=== PATIENT | female | born 1945 | race Caucasian/White ===

== ENCOUNTER 2017-10-15 14:20 | Emergency (ER) | payer OTHER ==
[~2017-10-15] VITALS: Ht 154.9 cm; Wt 114.3 kg
[2017-10-15 14:45] LABS: BASOPHILS ABSOLUTE AUTO 0.09 K/mm3 (0.00-0.23); BASOPHILS PERCENT AUTO 1 % (0-2); EOSINOPHILS ABSOLUTE AUTO 1.34 K/mm3 (0.00-0.68); EOSINOPHILS PERCENT AUTO 15 % (0-6); Hematocrit 39.8 % (33.0-51.0); Hemoglobin 12.8 g/dL (11.5-16.0); IMMATURE GRAN ABSOLUTE AUTO 0.03 K/mm3 (0.00-0.10); IMMATURE GRAN PERCENT AUTO 0 % (0-1); LYMPHOCYTES ABSOLUTE AUTO 1.38 K/mm3 (0.84-5.20); LYMPHOCYTES PERCENT AUTO 15 % (21-46); MONOCYTES PERCENT AUTO 7 % (4-13); Mean Corpuscular HGB 28.4 pg (26.0-34.0); Mean Corpuscular HGB Conc 32.2 g/dL (31.5-36.5); Mean Corpuscular Volume 88 fL (80-100); Mean Platelet Volume 9.6 fL (9.1-12.4); NEUTROPHILS ABSOLUTE AUTO 5.57 K/mm3 (1.96-9.15); NEUTROPHILS PERCENT AUTO 62 % (41-73); Platelet Count 275 K/mm3 (150-400); RDW Standard Deviation 45.3 fL (35.1-46.3); White Blood Cell Count 9.01 K/mm3 (4.00-11.30)
[2017-10-15 15:10] LABS: Alanine Aminotransfer (ALT/SGP 16 U/L (12-78); Albumin, Blood 3.3 g/dL (3.4-5.0); Albumin/Globulin Ratio 0.9 (0.8-1.8); Alk Phos 128 U/L (50-136); Anion Gap 8 mmol/L (6-16); Aspartate Aminotrans (AST/SGOT 15 U/L (12-37); Bilirubin, Total 0.2 mg/dL (0.1-1.0); Blood Urea Nitrogen 9 mg/dL (8-24); Bun/Creatinine Ratio 16.7 (12.0-20.0); CO2, Blood 26 mmol/L (21-32); Calcium, Blood 8.6 mg/dL (8.5-10.1); Chloride, Blood 106 mmol/L (98-108); Creatinine, Blood 0.54 mg/dL (0.40-1.00); Globulin, Blood 3.8 g/dL (2.2-4.0); Glomerular Filtration Rate >60 (60-); Glucose, Blood 100 mg/dL (70-99); Potassium, Blood 4.4 mmol/L (3.5-5.5); Sodium, Blood 140 mmol/L (136-145); Total Protein, Blood 7.1 g/dL (6.4-8.2); Troponin I <0.015 ng/mL (0.000-0.040)
[2017-10-15] MEDS ORDERED: SERT25 (15:22)
[2017-10-15] MEDS ORDERED: BUDE6HFA (15:22)
[2017-10-15 16:20] LABS: PCO2 Arterial 38.3 mmHg (35-45); PO2 Arterial 62.6 mmHg (80-100); pH Blood Arterial 7.45 (7.35-7.45)
[2017-10-15] MEDS ORDERED: CEFP200 PO (16:42)
== END 2017-10-15 16:54 | disposition home or self-care (01) ==
LOC: ER 14:20
PROVIDERS: Physician Assistant
DX: J44.1 Chronic obstructive pulmonary disease with (acute) exacerbation (principal); J18.9 Pneumonia, unspecified organism; F41.9 Anxiety disorder, unspecified; K21.9 Gastro-esophageal reflux disease without esophagitis; Z88.2 Allergy status to sulfonamides; Z90.710 Acquired absence of both cervix and uterus; Z90.49 Acquired absence of other specified parts of digestive tract; Z87.891 Personal history of nicotine dependence
CPT/HCPCS: 36415; 36600; 71046; 80053; 82803; 84484; 85025; 93005; 93010; 99284

== ENCOUNTER 2020-11-22 17:42 | Inpatient (IN) | payer OTHER ==
[~2020-11-22] VITALS: Ht 152.4 cm; Wt 110.2 kg
[~2020-11-22 17:42] MED LIST: CEFP200 PO
[2020-11-22 18:30] LABS: BASOPHILS ABSOLUTE AUTO 0.05 K/mm3 (0.00-0.23); BASOPHILS PERCENT AUTO 1 % (0-2); EOSINOPHILS ABSOLUTE AUTO 0.15 K/mm3 (0.00-0.68); EOSINOPHILS PERCENT AUTO 2 % (0-6); Hematocrit 43.9 % (33.0-51.0); Hemoglobin 13.7 g/dL (11.5-16.0); IMMATURE GRAN ABSOLUTE AUTO 0.03 K/mm3 (0.00-0.10); IMMATURE GRAN PERCENT AUTO 0 % (0-1); LYMPHOCYTES ABSOLUTE AUTO 1.14 K/mm3 (0.84-5.20); LYMPHOCYTES PERCENT AUTO 12 % (21-46); MONOCYTES PERCENT AUTO 8 % (4-13); Mean Corpuscular HGB 28.4 pg (26.0-34.0); Mean Corpuscular HGB Conc 31.2 g/dL (31.5-36.5); Mean Corpuscular Volume 91 fL (80-100); Mean Platelet Volume 10.4 fL (9.1-12.4); NEUTROPHILS ABSOLUTE AUTO 7.24 K/mm3 (1.96-9.15); NEUTROPHILS PERCENT AUTO 78 % (41-73); Platelet Count 309 K/mm3 (150-400); RDW Coefficient Variation 14.4 % (11.7-14.2); RDW Standard Deviation 47.5 fL (35.1-46.3); Red Blood Cell Count 4.83 M/mm3 (3.80-5.20); White Blood Cell Count 9.31 K/mm3 (4.00-11.30)
[2020-11-22 18:55] LABS: Alanine Aminotransfer (ALT/SGP 50 U/L (12-78); Albumin, Blood 3.7 g/dL (3.4-5.0); Alk Phos 90 U/L (50-136); Anion Gap 4 mmol/L (6-16); Aspartate Aminotrans (AST/SGOT 27 U/L (12-37); Bilirubin, Total 0.5 mg/dL (0.1-1.0); Blood Urea Nitrogen 14 mg/dL (8-24); Bun/Creatinine Ratio 23.6 (12.0-20.0); CO2, Blood 30 mmol/L (21-32); Calcium, Blood 9.2 mg/dL (8.5-10.1); Chloride, Blood 105 mmol/L (98-108); Creatinine, Blood 0.59 mg/dL (0.40-1.00); Globulin, Blood 3.7 g/dL (2.2-4.0); Glomerular Filtration Rate >60 (60-); Glucose, Blood 122 mg/dL (70-99); Potassium, Blood 4.1 mmol/L (3.5-5.5); Sodium, Blood 139 mmol/L (136-145); Total Protein, Blood 7.4 g/dL (6.4-8.2); Troponin I <0.015 ng/mL (0.000-0.040)
[2020-11-22] MEDS ORDERED: ELIQUIS5 MG PO (21:26)
[2020-11-22] MEDS ORDERED: Valerian Root500 MG PO (21:34)
[2020-11-23 06:29] LABS: Anion Gap 5 mmol/L (6-16); Blood Urea Nitrogen 14 mg/dL (8-24); Bun/Creatinine Ratio 25.4 (12.0-20.0); CO2, Blood 31 mmol/L (21-32); Chloride, Blood 105 mmol/L (98-108); Creatinine, Blood 0.55 mg/dL (0.40-1.00); Glomerular Filtration Rate >60 (60-); Glucose, Blood 135 mg/dL (70-99); Potassium, Blood 4.2 mmol/L (3.5-5.5); Sodium, Blood 141 mmol/L (136-145)
--- NOTE | 2020-11-23 17:42 | NUR ---
SHIFT SUMMARY PATIENT TO THE FLOOR EARLY AFTERNOON. PATIENT ALERT AND ORIENTED, INDEPENDENT IN THE ROOM. PATIENT COOPERATIVE WITH CARE, COOPERATING WITH ADMISSION. PATIENT ARRIVED TO THE FLOOR IN A RECLINER, STATES SHE SLEEPS IN THE RECLINER. PATIENT DENIES SOB AT REST. SOB OCCURS WITH ACTIVITY, RETURNING TO NORMAL QUICKLY AT REST. PATIENT DENIES PAIN. PATIENT'S DAUGHTER IN THE ROOM THIS AFTERNOON VISITING. PATIENT CURRENTLY SITTING UP, EATING DINNER, WATCHING TELEVISION.
[2020-11-24 04:22] LABS: Albumin, Blood 3.1 g/dL (3.4-5.0); Anion Gap 5 mmol/L (6-16); Blood Urea Nitrogen 20 mg/dL (8-24); Bun/Creatinine Ratio 29.5 (12.0-20.0); CO2, Blood 34 mmol/L (21-32); Calcium, Blood 8.9 mg/dL (8.5-10.1); Chloride, Blood 102 mmol/L (98-108); Creatinine, Blood 0.68 mg/dL (0.40-1.00); Glomerular Filtration Rate >60 (60-); Glucose, Blood 106 mg/dL (70-99); Magnesium, Blood 1.8 mg/dL (1.6-2.4); Phosphorus, Blood 4.1 mg/dL (2.5-4.9); Potassium, Blood 3.6 mmol/L (3.5-5.5); Sodium, Blood 141 mmol/L (136-145)
--- NOTE | 2020-11-24 04:36 | NUR ---
SHIFT SUMMARY ASSUMED CARE OF PT AT 1900. PT IS A/OX4. HEART SOUNDS IRREGULAR, PT HAS BEEN IN AFIB T/O THE NIGHT. PT HEART TOUCHES THAT 150S DURING ACTIVITY. LUNG SOUNDS ARE COURSE T/O. PT USED BSC DURING THE NIGHT. PT IS A 1P SBA. URINE IS CLEAR AND YELLOW. NO COMPLAINT T/O THE NIGHT. CALL LIGHT IN REACH, BED IN LOWEST POSTION.
--- NOTE | 2020-11-24 18:01 | NUR ---
PT CONTINUES TO DIURESS WITH LASIX 40MG IV BID, PT'S HEART RATE ELEVATED THIS AM, CARDIZEM DOSE CHANGED TO 180 MG FROM 120MG. PT'S HEART RATE HAS BEEN IN THE 80'S THIS AFTERNOON. NO C/O OF PAIN OR DISCOMFORT. PT SAYS SHE IS FEELING BETTER AND ACTUALLY FEELS HUNGRY THIS EVENING. NO ACUTE CHANGES NOTED THIS SHIFT, WILL CONTINUE TO MONITOR AND REPORT TO ONCOMING RN.
--- NOTE | 2020-11-25 05:28 | NUR ---
SHIFT SUMMARY NO ACUTE CHANGES THIS SHIFT. AXO. IN AFIB RANGING FROM 80'S T0 130'S. PRN CARDIZEM PO BEING GIVEN Q6 ORDERED DUE TO MEDICATION WEARTING OFF AND HR >110. PT ASUMPTOMATIC TO THIS. PT CONTINUES ON 2LNC. PT STATES IN GENERAL, FEELING "REALLY GOOD", "BETTER THAN I HAVE FELT IN THE LAST FEW MONTHS". PT DIURESING WELL. UP TO BSC MULTIPLE TIMES THIS SHIFT. OTHERWISE, PT RESTING IN ROOM, WILL CONTINUE TO MONITOR UNTUIL SHIFT CHANGE.
[2020-11-25 09:04] LABS: Albumin, Blood 3.5 g/dL (3.4-5.0); Anion Gap 4 mmol/L (6-16); Blood Urea Nitrogen 18 mg/dL (8-24); Bun/Creatinine Ratio 29.4 (12.0-20.0); CO2, Blood 36 mmol/L (21-32); Calcium, Blood 9.3 mg/dL (8.5-10.1); Chloride, Blood 99 mmol/L (98-108); Creatinine, Blood 0.61 mg/dL (0.40-1.00); Glomerular Filtration Rate >60 (60-); Glucose, Blood 100 mg/dL (70-99); Phosphorus, Blood 3.4 mg/dL (2.5-4.9); Potassium, Blood 3.7 mmol/L (3.5-5.5); Sodium, Blood 139 mmol/L (136-145)
--- NOTE | 2020-11-25 18:01 | NUR ---
SHIFT SUMMARY PT ALERT AND ORIENTED X 4. PT WORKED WITH PT/OT DURING SHIFT. POSSIBLE HOME HEALTH REFERRALS. HR STABLE. BP STABLE. OXYGEN SATURATION MAINTAINED ABOVE 92% ON 1 L OF OXYGEN VIA NC. SBA TO BATHROOM. NO CP OR PRESSURE REPORTED. WILL CONTINUE TO MONITOR UNTIL REPORT GIVEN TO NIGHTSHIFT RN.
[2020-11-26 05:09] LABS: Anion Gap 5 mmol/L (6-16); Blood Urea Nitrogen 19 mg/dL (8-24); CO2, Blood 34 mmol/L (21-32); Calcium, Blood 9.1 mg/dL (8.5-10.1); Chloride, Blood 101 mmol/L (98-108); Creatinine, Blood 0.51 mg/dL (0.40-1.00); Glomerular Filtration Rate >60 (60-); Glucose, Blood 112 mg/dL (70-99); Phosphorus, Blood 3.5 mg/dL (2.5-4.9); Potassium, Blood 3.6 mmol/L (3.5-5.5); Sodium, Blood 140 mmol/L (136-145)
--- NOTE | 2020-11-26 05:46 | NUR ---
SHIFT SUMMARY NO ACUTE CHANGES THIS SHIFT. AXO. VSS. ON 1-2LNC. HR MUCH BETTER CONTROLLED THIS SHIFT VS LAST NOC. HR 100'S FOR THE MAJORITY OF SHIFT AT REST, WHILE UP TO BATHROOM, PT DOES RISE INTO 130'S BUT QUICKLY TRENDS BACK DOWN. PT HAS DENIED CP/PRESSURE THIS SHIFT. PT STILL DIURESING WELL. PT EXCITED ABOUT POSSIBILITY OF DC'ING TODAY. WILL CONTINUE TO MONITOR UNTIL SHIFT CHANGE.
[2020-11-26] MEDS ORDERED: DILT120 PO (11:52)
[2020-11-26] MEDS ORDERED: PRED20 PO (11:53)
== END 2020-11-26 13:14 | disposition home or self-care (01) | DRG 291 ==
LOC: ER 17:42 → ERHOLD 21:46 → PCU 21:46
PROVIDERS: Emergency Medicine; Internal Medicine; ADMIT Internal Medicine
PROC: 8E0ZXY6 Isolation (ICD-10-PCS; principal; 2020-11-22)
DX: I50.21 Acute systolic (congestive) heart failure (principal); J96.21 Acute and chronic respiratory failure with hypoxia; J96.01 Acute respiratory failure with hypoxia; Z68.43 Body mass index [BMI] 50.0-59.9, adult; I48.91 Unspecified atrial fibrillation; D86.0 Sarcoidosis of lung; I27.20 Pulmonary hypertension, unspecified; E66.01 Morbid (severe) obesity due to excess calories; J44.9 Chronic obstructive pulmonary disease, unspecified; F32.9 Major depressive disorder, single episode, unspecified; K21.9 Gastro-esophageal reflux disease without esophagitis; F41.9 Anxiety disorder, unspecified; Z99.81 Dependence on supplemental oxygen; Z90.710 Acquired absence of both cervix and uterus; Z90.49 Acquired absence of other specified parts of digestive tract; Z98.890 Other specified postprocedural states; Z88.2 Allergy status to sulfonamides; Z87.891 Personal history of nicotine dependence; Z85.42 Personal history of malignant neoplasm of other parts of uterus; Z79.899 Other long term (current) drug therapy
CPT/HCPCS: 36415; 71045; 80048; 80053; 80069; 83735; 83880; 84443; 84484; 85025; 87040; 93005; 93010; 94640; 94760; 94761; 94762; 96365; 96366; 96375; 96376; 97116; 97162; 97165; 97530; 97535; 99285-25; A9270; J1160; J1940; J7030; J7050; J7512

== ENCOUNTER 2020-12-05 09:48 | Observation (INO) | payer OTHER ==
[~2020-12-05] VITALS: Ht 152.4 cm; Wt 114.0 kg
[~2020-12-05 09:48] MED LIST changes: +DILT120 PO; +ELIQUIS5 MG PO; +PRED20 PO; +Valerian Root500 MG PO
[2020-12-05 10:14] LABS: BASOPHILS ABSOLUTE AUTO 0.04 K/mm3 (0.00-0.23); BASOPHILS PERCENT AUTO 0 % (0-2); EOSINOPHILS ABSOLUTE AUTO 0.16 K/mm3 (0.00-0.68); EOSINOPHILS PERCENT AUTO 1 % (0-6); Hematocrit 42.5 % (33.0-51.0); Hemoglobin 13.5 g/dL (11.5-16.0); IMMATURE GRAN ABSOLUTE AUTO 0.21 K/mm3 (0.00-0.10); IMMATURE GRAN PERCENT AUTO 1 % (0-1); LYMPHOCYTES ABSOLUTE AUTO 2.61 K/mm3 (0.84-5.20); LYMPHOCYTES PERCENT AUTO 17 % (21-46); MONOCYTES ABSOLUTE AUTO 1.21 K/mm3 (0.16-1.47); MONOCYTES PERCENT AUTO 8 % (4-13); Mean Corpuscular HGB 28.1 pg (26.0-34.0); Mean Corpuscular HGB Conc 31.8 g/dL (31.5-36.5); Mean Corpuscular Volume 88 fL (80-100); Mean Platelet Volume 9.8 fL (9.1-12.4); NEUTROPHILS PERCENT AUTO 73 % (41-73); Platelet Count 264 K/mm3 (150-400); RDW Coefficient Variation 14.6 % (11.7-14.2); RDW Standard Deviation 47.2 fL (35.1-46.3); Red Blood Cell Count 4.81 M/mm3 (3.80-5.20); White Blood Cell Count 15.63 K/mm3 (4.00-11.30)
[2020-12-05 10:32] LABS: Alanine Aminotransfer (ALT/SGP 24 U/L (12-78); Albumin, Blood 3.2 g/dL (3.4-5.0); Albumin/Globulin Ratio 1.1 (0.8-1.8); Alk Phos 67 U/L (50-136); Anion Gap 7 mmol/L (6-16); Aspartate Aminotrans (AST/SGOT 6 U/L (12-37); Bilirubin, Total 0.3 mg/dL (0.1-1.0); Blood Urea Nitrogen 29 mg/dL (8-24); Bun/Creatinine Ratio 49.1 (12.0-20.0); CO2, Blood 27 mmol/L (21-32); Calcium, Blood 8.7 mg/dL (8.5-10.1); Chloride, Blood 102 mmol/L (98-108); Creatinine, Blood 0.59 mg/dL (0.40-1.00); Glomerular Filtration Rate >60 (60-); Glucose, Blood 96 mg/dL (70-99); Sodium, Blood 136 mmol/L (136-145); Total Protein, Blood 6.2 g/dL (6.4-8.2); Troponin I <0.015 ng/mL (0.000-0.040)
--- NOTE | 2020-12-05 14:37 | NUR ---
pt arrived to pcu 5 via gurney from ED. pt is a/ox3, pleasant and cooperative with care, able to stand and transfer herself to bed, lungs are clear t/o, resp even and unlabored, states she feels ok now, is on home 02 at 2 liters, no cough noted, hrirr, tele in place running afib with rvr in the 130's, trace edema noted to b/l le, ppp+1, cap refill <3sec, v.s. stable, afebrile, iv site is clear and patent, btx4, abd flat soft nontender, voids without diff, skin c/w/d, maew, nicol, oriented to room layout and call system, call light in reach.
--- NOTE | 2020-12-05 17:55 | NUR ---
PT DOING OK, HEART RATE AROUND 110 PER TELE, DENIES ANY SYMPTOMS AT THIS TIME. CALL LIGHT IN REACH.
--- NOTE | 2020-12-05 19:20 | NUR ---
PT DENIES ANY COMPLAINTS OF PAIN, CHEST PAIN, HEADACHE, NAUSEA, NUMBNESS OR TINGLING, OR SOB. PT ENCOURAGED ABOUT HER HEART RATE, CURRENTLY HR IN LOW 100'S. PT IS MORBIDLY OBESE. PT DENIES ANY URINARY COMPLICATIONS, AND REPORTS SHE HAD A BM TODAY. PT HAS PIV TO R/L HAND - BOTH FLUSHED WNL. CALL LIGHT WITHIN REACH. BED IN LOW POSITION.
[2020-12-06 02:11] LABS: BASOPHILS ABSOLUTE AUTO 0.04 K/mm3 (0.00-0.23); BASOPHILS PERCENT AUTO 0 % (0-2); EOSINOPHILS ABSOLUTE AUTO 0.12 K/mm3 (0.00-0.68); EOSINOPHILS PERCENT AUTO 1 % (0-6); Hemoglobin 12.9 g/dL (11.5-16.0); IMMATURE GRAN ABSOLUTE AUTO 0.09 K/mm3 (0.00-0.10); IMMATURE GRAN PERCENT AUTO 1 % (0-1); LYMPHOCYTES ABSOLUTE AUTO 1.98 K/mm3 (0.84-5.20); LYMPHOCYTES PERCENT AUTO 15 % (21-46); MONOCYTES ABSOLUTE AUTO 0.99 K/mm3 (0.16-1.47); MONOCYTES PERCENT AUTO 8 % (4-13); Mean Corpuscular HGB 28.4 pg (26.0-34.0); Mean Corpuscular HGB Conc 31.5 g/dL (31.5-36.5); Mean Corpuscular Volume 90 fL (80-100); Mean Platelet Volume 9.8 fL (9.1-12.4); NEUTROPHILS ABSOLUTE AUTO 9.96 K/mm3 (1.96-9.15); NEUTROPHILS PERCENT AUTO 76 % (41-73); Platelet Count 236 K/mm3 (150-400); RDW Coefficient Variation 14.7 % (11.7-14.2); RDW Standard Deviation 48.8 fL (35.1-46.3); Red Blood Cell Count 4.54 M/mm3 (3.80-5.20); White Blood Cell Count 13.18 K/mm3 (4.00-11.30)
[2020-12-06 02:33] LABS: Anion Gap 3 mmol/L (6-16); Blood Urea Nitrogen 32 mg/dL (8-24); Bun/Creatinine Ratio 44.3 (12.0-20.0); CO2, Blood 32 mmol/L (21-32); Calcium, Blood 8.8 mg/dL (8.5-10.1); Chloride, Blood 105 mmol/L (98-108); Creatinine, Blood 0.72 mg/dL (0.40-1.00); Glomerular Filtration Rate >60 (60-); Glucose, Blood 91 mg/dL (70-99); Magnesium, Blood 2.1 mg/dL (1.6-2.4); Potassium, Blood 4.3 mmol/L (3.5-5.5); Sodium, Blood 140 mmol/L (136-145); Troponin I <0.015 ng/mL (0.000-0.040)
--- NOTE | 2020-12-06 06:11 | NUR ---
SHIFT SUMMARY - NO ACUTE CHANGES THROUGHOUT THE NIGHT. HEART RATE RANGED FROM UPPER 70'S TO LOW 100'S - PT DENIED ANY CHEST DISCOMFORT OR PAIN. PT SLEPT FOR APPX 6 HOURS TONIGHT. PT IS ANTICIPATING GOING HOME TODAY. CALL LIGHT WITHIN REACH. BED IN LOW POSITION. FLUIDS AT BEDSIDE.
--- NOTE | 2020-12-06 08:22 | NUR ---
pt laying in bed awake a/ox3, pleasant and cooperative with care, follows commands well, denies pain, tightness or sob, reports she slept well, lungs are clear t/o, a bit dim in bases, on her chronic 2 liters via n/c, no cough noted, hrr, tele in place running afib in the 110 to 130's, no edema noted, ppp faint, cap refill <3sec, vs stable, afebrile, iv sites are clear and patent, btx4, abd flat soft nontender, voids without diff, skin c/w/d, maew, ambulates indep, nicol, call light in reach.
[2020-12-06] MEDS ORDERED: XARELTO20 MG PO (15:50)
== END 2020-12-06 16:32 | disposition home or self-care (01) ==
LOC: ER 09:48 → PCU 09:49
PROVIDERS: Emergency Medicine; ADMIT Internal Medicine
DX: I48.91 Unspecified atrial fibrillation (principal); D86.0 Sarcoidosis of lung; I11.0 Hypertensive heart disease with heart failure; I50.23 Acute on chronic systolic (congestive) heart failure; J44.9 Chronic obstructive pulmonary disease, unspecified; E66.01 Morbid (severe) obesity due to excess calories; F32.9 Major depressive disorder, single episode, unspecified; Z88.5 Allergy status to narcotic agent; Z88.2 Allergy status to sulfonamides; Z79.01 Long term (current) use of anticoagulants; Z79.899 Other long term (current) drug therapy
CPT/HCPCS: 36415; 71046; 80048; 80053; 83735; 83880; 84484; 85025; 93005; 93010; 94640; 94760; 96365; 96366; 96375; 99285-25; A9270; G0378

== ENCOUNTER 2020-12-15 10:52 | Observation (INO) | payer OTHER ==
[~2020-12-15] VITALS: Ht 152.4 cm; Wt 114.8 kg
[~2020-12-15 10:52] MED LIST changes: +XARELTO20 MG PO
[2020-12-15 11:28] LABS: BASOPHILS ABSOLUTE AUTO 0.04 K/mm3 (0.00-0.23); BASOPHILS PERCENT AUTO 0 % (0-2); EOSINOPHILS ABSOLUTE AUTO 0.12 K/mm3 (0.00-0.68); EOSINOPHILS PERCENT AUTO 1 % (0-6); Hematocrit 41.2 % (33.0-51.0); Hemoglobin 13.3 g/dL (11.5-16.0); IMMATURE GRAN ABSOLUTE AUTO 0.06 K/mm3 (0.00-0.10); IMMATURE GRAN PERCENT AUTO 1 % (0-1); LYMPHOCYTES ABSOLUTE AUTO 2.06 K/mm3 (0.84-5.20); LYMPHOCYTES PERCENT AUTO 17 % (21-46); MONOCYTES PERCENT AUTO 6 % (4-13); Mean Corpuscular HGB 28.8 pg (26.0-34.0); Mean Corpuscular HGB Conc 32.3 g/dL (31.5-36.5); Mean Corpuscular Volume 89 fL (80-100); NEUTROPHILS ABSOLUTE AUTO 8.99 K/mm3 (1.96-9.15); NEUTROPHILS PERCENT AUTO 75 % (41-73); Platelet Count 239 K/mm3 (150-400); RDW Coefficient Variation 14.8 % (11.7-14.2); RDW Standard Deviation 48.4 fL (35.1-46.3); Red Blood Cell Count 4.62 M/mm3 (3.80-5.20); White Blood Cell Count 11.97 K/mm3 (4.00-11.30)
[2020-12-15 11:42] LABS: Alanine Aminotransfer (ALT/SGP 40 U/L (12-78); Albumin/Globulin Ratio 0.9 (0.8-1.8); Alk Phos 70 U/L (50-136); Anion Gap 5 mmol/L (6-16); Aspartate Aminotrans (AST/SGOT 22 U/L (12-37); Bilirubin, Total 0.4 mg/dL (0.1-1.0); Blood Urea Nitrogen 26 mg/dL (8-24); Bun/Creatinine Ratio 42.8 (12.0-20.0); CO2, Blood 27 mmol/L (21-32); Calcium, Blood 8.5 mg/dL (8.5-10.1); Chloride, Blood 107 mmol/L (98-108); Creatinine, Blood 0.61 mg/dL (0.40-1.00); Globulin, Blood 3.4 g/dL (2.2-4.0); Glomerular Filtration Rate >60 (60-); Glucose, Blood 97 mg/dL (70-99); Potassium, Blood 3.7 mmol/L (3.5-5.5); Sodium, Blood 139 mmol/L (136-145); Total Protein, Blood 6.4 g/dL (6.4-8.2); Troponin I <0.015 ng/mL (0.000-0.040)
[2020-12-15] MEDS ORDERED: POTCHL20ER PO (12:47)
[2020-12-15] MEDS ORDERED: SERT100 PO (12:47)
[2020-12-15] MEDS ORDERED: FURO40 PO (12:47)
[2020-12-15] MEDS ORDERED: SYMBICORT 160-4.6 GM INH (12:47)
[2020-12-15] MEDS ORDERED: PRESERVISION A1 EAC1 PO (12:47)
[2020-12-15] MEDS ORDERED: LISI5 PO (12:47)
[2020-12-15] MEDS ORDERED: Valerian Root500 MG PO (12:47)
[2020-12-15] MEDS ORDERED: TIOT18 INH (12:47)
[2020-12-15] MEDS ORDERED: ALBU90OI INH (12:47)
[2020-12-15] MEDS ORDERED: ELIQUIS5 MG PO (12:48)
[2020-12-15] MEDS ORDERED: METO100 PO (12:48)
[2020-12-16 04:40] LABS: BASOPHILS ABSOLUTE AUTO 0.04 K/mm3 (0.00-0.23); BASOPHILS PERCENT AUTO 0 % (0-2); EOSINOPHILS ABSOLUTE AUTO 0.12 K/mm3 (0.00-0.68); EOSINOPHILS PERCENT AUTO 1 % (0-6); Hemoglobin 12.5 g/dL (11.5-16.0); IMMATURE GRAN ABSOLUTE AUTO 0.05 K/mm3 (0.00-0.10); IMMATURE GRAN PERCENT AUTO 1 % (0-1); LYMPHOCYTES ABSOLUTE AUTO 1.27 K/mm3 (0.84-5.20); LYMPHOCYTES PERCENT AUTO 12 % (21-46); MONOCYTES ABSOLUTE AUTO 0.64 K/mm3 (0.16-1.47); MONOCYTES PERCENT AUTO 6 % (4-13); Mean Corpuscular HGB 28.7 pg (26.0-34.0); Mean Corpuscular HGB Conc 32.1 g/dL (31.5-36.5); Mean Corpuscular Volume 89 fL (80-100); Mean Platelet Volume 10.1 fL (9.1-12.4); NEUTROPHILS ABSOLUTE AUTO 8.49 K/mm3 (1.96-9.15); NEUTROPHILS PERCENT AUTO 80 % (41-73); Platelet Count 212 K/mm3 (150-400); RDW Coefficient Variation 14.7 % (11.7-14.2); RDW Standard Deviation 47.9 fL (35.1-46.3); Red Blood Cell Count 4.36 M/mm3 (3.80-5.20); White Blood Cell Count 10.61 K/mm3 (4.00-11.30)
[2020-12-16 04:57] LABS: Anion Gap 5 mmol/L (6-16); Blood Urea Nitrogen 26 mg/dL (8-24); Bun/Creatinine Ratio 35.1 (12.0-20.0); CO2, Blood 30 mmol/L (21-32); Calcium, Blood 8.4 mg/dL (8.5-10.1); Chloride, Blood 104 mmol/L (98-108); Creatinine, Blood 0.74 mg/dL (0.40-1.00); Glomerular Filtration Rate >60 (60-); Glucose, Blood 92 mg/dL (70-99); Potassium, Blood 4.1 mmol/L (3.5-5.5); Sodium, Blood 139 mmol/L (136-145)
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
--- NOTE | 2020-12-16 17:53 | NUR ---
PATIENT A/OX4, UP INDEPENDENT IN ROOM. A-FIB ON TELE, UP TO THE 130'S THIS EVENING, PO METOPROLOL AND PRN IV METOPROLOL GIVEN TO TREAT. SECOND PART OF STRESS TEST TOMORROW. PATIENT DENIES ANY CP THIS SHIFT. LUNGS CLEAR/DIMINISHED, 2LO2 NOW AND AT BASELINE. CONTINENT OF URINE/STOOL. SKIN INTACT. TOLERATING CARDIAC DIET. PLEASANT AND COOPERATIVE WITH CARE.
--- NOTE | 2020-12-17 03:38 | NUR ---
PT continues full code on tele monitoring with afib rate up to 145 with activity. She had recieves 5 mg iv lopressor just prior to my shift with continued AFIB rate 120s. Secend dose of IV lopressor given with some decreased rate to 110s. Recieved call from tele monitor December on 11 beat run of vtach. PT asymptomatic denies chest pain or other acute distress. She had 1st part of cardiac stress test yesterday second part scheduled for today. [facility] PT says she has been complainting of heart palpations for years. Oxygen dependent 2 l nc at all times. Recent afib dx & CHF. Indep in room PT tolerating diet. Heart sounds very distant. Lungs diminished bilat.
--- NOTE | 2020-12-17 05:17 | NUR ---
DR Eckert updated on beat run of [facility]. Lab orders CBC CMP mag ordered. Has cardiac stress test set for today. Denies chest pain or acute distress.
[2020-12-17 05:40] LABS: BASOPHILS ABSOLUTE AUTO 0.02 K/mm3 (0.00-0.23); BASOPHILS PERCENT AUTO 0 % (0-2); EOSINOPHILS ABSOLUTE AUTO 0.14 K/mm3 (0.00-0.68); EOSINOPHILS PERCENT AUTO 2 % (0-6); Hematocrit 38.8 % (33.0-51.0); Hemoglobin 12.3 g/dL (11.5-16.0); IMMATURE GRAN ABSOLUTE AUTO 0.04 K/mm3 (0.00-0.10); IMMATURE GRAN PERCENT AUTO 1 % (0-1); LYMPHOCYTES ABSOLUTE AUTO 1.23 K/mm3 (0.84-5.20); LYMPHOCYTES PERCENT AUTO 14 % (21-46); MONOCYTES ABSOLUTE AUTO 0.58 K/mm3 (0.16-1.47); MONOCYTES PERCENT AUTO 7 % (4-13); Mean Corpuscular HGB 28.1 pg (26.0-34.0); Mean Corpuscular HGB Conc 31.7 g/dL (31.5-36.5); Mean Corpuscular Volume 89 fL (80-100); NEUTROPHILS ABSOLUTE AUTO 6.62 K/mm3 (1.96-9.15); NEUTROPHILS PERCENT AUTO 77 % (41-73); Platelet Count 214 K/mm3 (150-400); RDW Coefficient Variation 14.6 % (11.7-14.2); RDW Standard Deviation 47.1 fL (35.1-46.3); Red Blood Cell Count 4.38 M/mm3 (3.80-5.20); White Blood Cell Count 8.63 K/mm3 (4.00-11.30)
--- NOTE | 2020-12-17 06:00 | NUR ---
PT afib rate 93 this AM. Labs drawn per MD order await result.
[2020-12-17 06:19] LABS: Alanine Aminotransfer (ALT/SGP 28 U/L (12-78); Albumin, Blood 2.8 g/dL (3.4-5.0); Alk Phos 65 U/L (50-136); Anion Gap 4 mmol/L (6-16); Aspartate Aminotrans (AST/SGOT 7 U/L (12-37); Bilirubin, Total 0.8 mg/dL (0.1-1.0); Blood Urea Nitrogen 21 mg/dL (8-24); Bun/Creatinine Ratio 30.4 (12.0-20.0); CO2, Blood 32 mmol/L (21-32); Calcium, Blood 8.5 mg/dL (8.5-10.1); Chloride, Blood 104 mmol/L (98-108); Creatinine, Blood 0.69 mg/dL (0.40-1.00); Globulin, Blood 2.9 g/dL (2.2-4.0); Glomerular Filtration Rate >60 (60-); Glucose, Blood 90 mg/dL (70-99); Magnesium, Blood 2.1 mg/dL (1.6-2.4); Potassium, Blood 3.7 mmol/L (3.5-5.5); Sodium, Blood 140 mmol/L (136-145); Total Protein, Blood 5.7 g/dL (6.4-8.2)
[2020-12-17] MEDS ORDERED: LISI5 PO (18:26)
--- NOTE | 2020-12-17 18:32 | NUR ---
PATIENT IS ALERT AND ORIENTED AND COOPERATIVE WITH CARE. PATIENT COMPLETED HER STRESS TEST TODAY WHICH WAS NEGATIVE. THE PATIENT IS GOING TO DISCHARGE HOME AT 7. WILL CONTINUE TO MONITOR
== END 2020-12-17 18:44 | disposition home or self-care (01) ==
LOC: ER 10:52 → MEDS 13:11
PROVIDERS: Emergency Medicine; Internal Medicine; Nurse Practitioner Acute Care; ADMIT Internal Medicine
DX: R07.9 Chest pain, unspecified (principal); I48.91 Unspecified atrial fibrillation; I11.0 Hypertensive heart disease with heart failure; I50.22 Chronic systolic (congestive) heart failure; D86.9 Sarcoidosis, unspecified; J44.9 Chronic obstructive pulmonary disease, unspecified; E66.01 Morbid (severe) obesity due to excess calories; F32.9 Major depressive disorder, single episode, unspecified; Z79.01 Long term (current) use of anticoagulants; Z90.710 Acquired absence of both cervix and uterus; Z87.891 Personal history of nicotine dependence; Z68.42 Body mass index [BMI] 45.0-49.9, adult
CPT/HCPCS: 36415; 71045; 78452; 80048; 80053; 83735; 83880; 84484; 85025; 93005; 93010; 93017; 94640; 94760; 96374; 96375; 96376; 99285-25; A9270; A9500; G0378; J0706; J1885; J1940; J2785

== ENCOUNTER 2021-07-23 09:26 | Day surgery (SDC) | payer OTHER ==
[~2021-07-23] VITALS: Ht 152.4 cm; Wt 106.5 kg
[~2021-07-23 09:26] MED LIST changes: +ALBU90OI INH; +FURO40 PO; +LISI5 PO; +METO100 PO; +POTCHL20ER PO; +PRESERVISION A1 EAC1 PO; +SERT100 PO; +SYMBICORT 160-4.6 GM INH; +TIOT18 INH
--- NOTE | 2021-07-23 09:52 | NUR ---
07/23/21 0923 Luda Billingsley CALL LIGHT BREN VAUGHAN. EYE DROPS AT 0971 PLEDGETT AT 0994
== END 2021-07-23 11:30 | disposition home or self-care (01) ==
LOC: ORSCSDS 09:26
PROVIDERS: Ophthalmology
PROC: 08RJ3JZ Replacement of Right Lens with Synthetic Substitute, Percutaneous Approach (ICD-10-PCS; principal; 2021-07-23 10:30)
DX: H25.11 Age-related nuclear cataract, right eye (principal); I10 Essential (primary) hypertension; J44.9 Chronic obstructive pulmonary disease, unspecified; I48.91 Unspecified atrial fibrillation; Z79.01 Long term (current) use of anticoagulants; E66.01 Morbid (severe) obesity due to excess calories; Z68.42 Body mass index [BMI] 45.0-49.9, adult; Z79.899 Other long term (current) drug therapy
CPT/HCPCS: A9270; J2001; J2250; J3010; J3301; J7040; V2632

== ENCOUNTER 2021-08-13 09:08 | Day surgery (SDC) | payer OTHER ==
[~2021-08-13] VITALS: Ht 152.4 cm; Wt 108.1 kg
--- NOTE | 2021-08-13 09:45 | NUR ---
08/13/21 0945 MASON MALONEY TETRACAINE DROP INSTILLED AT 0936. PLEDGETT INSERTED AT 0937
--- NOTE | 2021-08-14 08:10 | NUR ---
08/14/21 0810 ARISTEO MORGAN LATE ENTRY: DR KHAN AT BEDSIDE VITALSIGNS DISCUSSED WITH PT. HR 118-124 DUE TO CHRONIC AFIB. RESP.36 REPORTED TO CLEARED TO DISCHARGE. PT WAS STABLE AND STATED SHE FELT GOOD AND READY TO GO HOME. WHEELED HER IN CHAIR TO NEIGHBOR'S TRUCK AND ASSISTED HER INSIDE.
== END 2021-08-13 11:30 | disposition home or self-care (01) ==
LOC: ORSCSDS 09:08
PROVIDERS: Ophthalmology
PROC: 08RK3JZ Replacement of Left Lens with Synthetic Substitute, Percutaneous Approach (ICD-10-PCS; principal; 2021-08-13 10:30)
DX: H25.12 Age-related nuclear cataract, left eye (principal); I48.91 Unspecified atrial fibrillation; Z79.01 Long term (current) use of anticoagulants; J44.9 Chronic obstructive pulmonary disease, unspecified; E66.01 Morbid (severe) obesity due to excess calories; Z68.42 Body mass index [BMI] 45.0-49.9, adult; Z79.899 Other long term (current) drug therapy
CPT/HCPCS: J2001; J2250; J3010; J3301; J7040; V2632

== ENCOUNTER 2021-08-15 02:14 | Inpatient (IN) | payer OTHER ==
[~2021-08-15] VITALS: Ht 152.4 cm; Wt 107.2 kg
[2021-08-15 02:43] LABS: BASOPHILS ABSOLUTE AUTO 0.05 K/mm3 (0.00-0.23); BASOPHILS PERCENT AUTO 0 % (0-2); EOSINOPHILS ABSOLUTE AUTO 0.99 K/mm3 (0.00-0.68); EOSINOPHILS PERCENT AUTO 9 % (0-6); Hematocrit 37.6 % (33.0-51.0); Hemoglobin 12.2 g/dL (11.5-16.0); IMMATURE GRAN ABSOLUTE AUTO 0.05 K/mm3 (0.00-0.10); IMMATURE GRAN PERCENT AUTO 0 % (0-1); LYMPHOCYTES ABSOLUTE AUTO 0.96 K/mm3 (0.84-5.20); LYMPHOCYTES PERCENT AUTO 8 % (21-46); MONOCYTES PERCENT AUTO 6 % (4-13); Mean Corpuscular HGB 29.7 pg (26.0-34.0); Mean Corpuscular HGB Conc 32.4 g/dL (31.5-36.5); Mean Corpuscular Volume 92 fL (80-100); Mean Platelet Volume 9.7 fL (9.1-12.4); NEUTROPHILS ABSOLUTE AUTO 8.68 K/mm3 (1.96-9.15); NEUTROPHILS PERCENT AUTO 76 % (41-73); Platelet Count 303 K/mm3 (150-400); RDW Coefficient Variation 13.7 % (11.7-14.2); RDW Standard Deviation 46.7 fL (35.1-46.3); Red Blood Cell Count 4.11 M/mm3 (3.80-5.20); White Blood Cell Count 11.43 K/mm3 (4.00-11.30)
[2021-08-15 03:11] LABS: Alanine Aminotransfer (ALT/SGP 13 U/L (12-78); Albumin, Blood 2.7 g/dL (3.4-5.0); Albumin/Globulin Ratio 0.7 (0.8-1.8); Alk Phos 94 U/L (50-136); Anion Gap 5 mmol/L (6-16); Aspartate Aminotrans (AST/SGOT 6 U/L (12-37); Bilirubin, Total 0.5 mg/dL (0.1-1.0); Blood Urea Nitrogen 12 mg/dL (8-24); Bun/Creatinine Ratio 19.5 (12.0-20.0); CO2, Blood 27 mmol/L (21-32); Chloride, Blood 107 mmol/L (98-108); Creatinine, Blood 0.62 mg/dL (0.40-1.00); Globulin, Blood 4.1 g/dL (2.2-4.0); Glomerular Filtration Rate >60 (60-); Glucose, Blood 120 mg/dL (70-99); Magnesium, Blood 1.6 mg/dL (1.6-2.4); Potassium, Blood 4.1 mmol/L (3.5-5.5); Sodium, Blood 139 mmol/L (136-145); Total Protein, Blood 6.8 g/dL (6.4-8.2); Troponin I <0.015 ng/mL (0.000-0.040)
[2021-08-15 04:04] LABS: Influenza A, PCR NEGATIVE (NEGATIVE); Influenza B, PCR NEGATIVE (NEGATIVE); Resp Syncytial Virus, PCR NEGATIVE (NEGATIVE); SARS-Cov-2 (COVID-19) PCR, MMC NEGATIVE (NEGATIVE)
[2021-08-15 10:55] LABS: CPK Creatine Kinase 30 U/L (26-193); Troponin I <0.015 ng/mL (0.000-0.040)
[2021-08-15] MEDS ORDERED: METO100ER PO ×2 (13:36)
[2021-08-15] MEDS ORDERED: LANOXIN125 MCG PO ×2 (13:37)
--- NOTE | 2021-08-15 15:01 | NUR ---
CARDIZEM DRIP OFF AT 1350, PO CARDIZEM ON BOARD. MAINTAINS AFIB WITH HR MAINTAINING 90-LOW 100'S. WILL CONTINUE TO MONITOR.
--- NOTE | 2021-08-15 17:01 | NUR ---
PATIENT ADMIT TO PCU, ABLE TO STAND AND TRANSFER. NEURO WNL. ON 2 L NASAL CANNULA SATING MID 90'S. WHEEZING HEARD THROUGHOUT WITH DIMINISHED BASES. DYSPNEA ON EXERTION. ABLE TO STAND AND USE BSC WITH ONE PERSON ASSIST. OVERALL SLIGHTLY WEAK DUE TO SOB. TELE SHOWING AFIB WITH HR AVERAGING 90'S AT THIS TIME. CARDIZEM DRIP OFF AT 1350. PO CARDIZEM ON BOARD. PATIENT STATES SHE HAS A HISTORY OF NAUSEA THAT COMES AND GOES. DENIES NAUSEA AT THIS TIME. USING BSC. SPEECH SPECIFIC ORDERS. CALL LIGHT IN REACH. DENIES NEEDS AT THIS TIME. WILL CONTINUE TO MONITOR AND REPORT OFF TO ONCOMING RN.
[2021-08-15 18:59] LABS: CPK Creatine Kinase 24 U/L (26-193); Troponin I <0.015 ng/mL (0.000-0.040)
[2021-08-16 04:13] LABS: BASOPHILS ABSOLUTE AUTO 0.01 K/mm3 (0.00-0.23); BASOPHILS PERCENT AUTO 0 % (0-2); EOSINOPHILS PERCENT AUTO 0 % (0-6); Hematocrit 38.2 % (33.0-51.0); Hemoglobin 11.9 g/dL (11.5-16.0); IMMATURE GRAN ABSOLUTE AUTO 0.02 K/mm3 (0.00-0.10); IMMATURE GRAN PERCENT AUTO 0 % (0-1); LYMPHOCYTES ABSOLUTE AUTO 0.46 K/mm3 (0.84-5.20); LYMPHOCYTES PERCENT AUTO 7 % (21-46); MONOCYTES ABSOLUTE AUTO 0.05 K/mm3 (0.16-1.47); MONOCYTES PERCENT AUTO 1 % (4-13); Mean Corpuscular HGB Conc 31.2 g/dL (31.5-36.5); Mean Corpuscular Volume 93 fL (80-100); NEUTROPHILS ABSOLUTE AUTO 6.14 K/mm3 (1.96-9.15); NEUTROPHILS PERCENT AUTO 92 % (41-73); Platelet Count 291 K/mm3 (150-400); RDW Coefficient Variation 13.5 % (11.7-14.2); RDW Standard Deviation 46.2 fL (35.1-46.3); Red Blood Cell Count 4.11 M/mm3 (3.80-5.20); White Blood Cell Count 6.68 K/mm3 (4.00-11.30)
[2021-08-16 04:26] LABS: Alanine Aminotransfer (ALT/SGP 15 U/L (12-78); Albumin, Blood 2.6 g/dL (3.4-5.0); Albumin/Globulin Ratio 0.6 (0.8-1.8); Alk Phos 100 U/L (50-136); Anion Gap 5 mmol/L (6-16); Aspartate Aminotrans (AST/SGOT 9 U/L (12-37); Bilirubin, Total 0.3 mg/dL (0.1-1.0); Blood Urea Nitrogen 20 mg/dL (8-24); Bun/Creatinine Ratio 38.6 (12.0-20.0); CO2, Blood 26 mmol/L (21-32); Calcium, Blood 9.5 mg/dL (8.5-10.1); Chloride, Blood 107 mmol/L (98-108); Creatinine, Blood 0.52 mg/dL (0.40-1.00); Globulin, Blood 4.2 g/dL (2.2-4.0); Glomerular Filtration Rate >60 (60-); Glucose, Blood 170 mg/dL (70-99); Potassium, Blood 4.8 mmol/L (3.5-5.5); Sodium, Blood 138 mmol/L (136-145); Total Protein, Blood 6.8 g/dL (6.4-8.2)
--- NOTE | 2021-08-16 05:20 | NUR ---
SHIFT SUMMARY: PT AWAKE AND ALERT, ABLE TO SLEEP WELL OVERNIGHT AND STATES SHE FEELS HER RESP STATUS HAS IMPROVED QUITE A BIT SINCE ADMISSION. SATS >95% ON 2L, DOES GET A BIT SOB WITH EXERTION., REMAINS IN AFIB, CONTROLLED RATE, DOES GET MILDLY TACHY WITH ACTIVITY. VSS, BED LOCKED AND LOW, CALL BOLDEN IN REACH. CLARY LINDSEY
--- NOTE | 2021-08-16 10:54 | NUR ---
ALERT AND ORIENTED X4. NEURO WNL. ON 2 L NASAL CANNULA SATING MID 90'S. STATES BREATHING HAS IMPROVED. NO SIGNS OF WHEEZING THIS AM. LUNGS SOUNDING CLEAR AND DIM IN BASES. SOB WITH EXERTION. TELE SHOWING AFIB, HR AVERAGING 120 THIS AM. PO CARDIZEM GIVEN. DR. MERINOTRATE AWARE. VITALS SIGNS STABLE. DENIES CHEST PAIN/PRESSURE. DENIES ABDOMINAL PAIN. USING BSC WITH ONE PERSON ASSIST. ANTIBIOTICS INFUSED THIS AM. PATIENT COMPLAINS OF HEADACHE. TYLENOL GIVEN. TOLERATING DIET. CALL LIGHT IN REACH. DENIES NEEDS AT THIS TIME.
[2021-08-16 11:16] LABS: Influenza A, PCR NEGATIVE (NEGATIVE); Influenza B, PCR NEGATIVE (NEGATIVE); Resp Syncytial Virus, PCR NEGATIVE (NEGATIVE); SARS-Cov-2 (COVID-19) PCR, MMC NEGATIVE (NEGATIVE)
--- NOTE | 2021-08-16 18:03 | NUR ---
SHIFT SUMMARY: NO ACUTE CHANGES, SEE PREVIOUS NOTE. DENIES PAINS AT THIS TIME. EATING DINNER. UP TO BSC WITH 1 PERSON ASSIST. PLAN FOR CHEST XRAY IN AM. PT IN TO WORK WITH PATIENT. SOB WITH EXERTION. ON 1 L NASAL CANNULA SATING MID 90'S. REMAINS IN AFIB WITH HR AVERAGING 95. CALL LIGHT IN REACH. WILL CONTINUE TO MONITOR AND REPORT OFF TO ONCOMING RN.
[2021-08-17 04:19] LABS: BASOPHILS ABSOLUTE AUTO 0.01 K/mm3 (0.00-0.23); BASOPHILS PERCENT AUTO 0 % (0-2); EOSINOPHILS PERCENT AUTO 0 % (0-6); Hemoglobin 12.2 g/dL (11.5-16.0); IMMATURE GRAN ABSOLUTE AUTO 0.05 K/mm3 (0.00-0.10); IMMATURE GRAN PERCENT AUTO 0 % (0-1); LYMPHOCYTES ABSOLUTE AUTO 0.48 K/mm3 (0.84-5.20); LYMPHOCYTES PERCENT AUTO 4 % (21-46); MONOCYTES ABSOLUTE AUTO 0.13 K/mm3 (0.16-1.47); MONOCYTES PERCENT AUTO 1 % (4-13); Mean Corpuscular HGB 29.8 pg (26.0-34.0); Mean Corpuscular HGB Conc 32.1 g/dL (31.5-36.5); Mean Corpuscular Volume 93 fL (80-100); Mean Platelet Volume 10.1 fL (9.1-12.4); NEUTROPHILS ABSOLUTE AUTO 11.57 K/mm3 (1.96-9.15); NEUTROPHILS PERCENT AUTO 95 % (41-73); Platelet Count 327 K/mm3 (150-400); RDW Coefficient Variation 13.5 % (11.7-14.2); RDW Standard Deviation 45.5 fL (35.1-46.3); White Blood Cell Count 12.24 K/mm3 (4.00-11.30)
[2021-08-17 04:32] LABS: International Normalized Ratio 1.14; Prothrombin Time Results 11.9 Sec (9.7-11.5)
[2021-08-17 04:43] LABS: Alanine Aminotransfer (ALT/SGP 21 U/L (12-78); Albumin, Blood 2.8 g/dL (3.4-5.0); Albumin/Globulin Ratio 0.8 (0.8-1.8); Alk Phos 103 U/L (50-136); Anion Gap 6 mmol/L (6-16); Aspartate Aminotrans (AST/SGOT 13 U/L (12-37); Bilirubin, Total 0.2 mg/dL (0.1-1.0); Blood Urea Nitrogen 27 mg/dL (8-24); Bun/Creatinine Ratio 50.6 (12.0-20.0); CO2, Blood 28 mmol/L (21-32); Calcium, Blood 9.2 mg/dL (8.5-10.1); Chloride, Blood 106 mmol/L (98-108); Creatinine, Blood 0.53 mg/dL (0.40-1.00); Globulin, Blood 3.7 g/dL (2.2-4.0); Glomerular Filtration Rate >60 (60-); Glucose, Blood 147 mg/dL (70-99); Potassium, Blood 5.3 mmol/L (3.5-5.5); Sodium, Blood 140 mmol/L (136-145); Total Protein, Blood 6.5 g/dL (6.4-8.2)
--- NOTE | 2021-08-17 05:50 | NUR ---
SHIFT SUMMARY: PT HAD RESTFUL NIGHT, NO C/O PAIN, RESP STATUS STEADILY IMPROVING O2 SATS >95% ON 2L, AFIB WITH CONTROLLED RATE, ABLE TO VERBALIZE NEEDS, BED LOCKED AND LOW, CALL BOLDEN IN REACH. VSS. ROSALIA RN
--- NOTE | 2021-08-17 11:31 | NUR ---
PER TELE PT HAD 2.5 SECOND PAUSE, PT SLEEPING, OTHER VSS. NOTIFIED DR MOJICA, DR WILL UPDATE HOME MED REC AND OK TO CONTINUE WITH DISCHARGE
[2021-08-17] MEDS ORDERED: Acetaminophen650 M1 PO ×2 (11:56)
[2021-08-17] MEDS ORDERED: AZIT500 PO ×2 (11:57)
[2021-08-17] MEDS ORDERED: CEFDINIR300 M1 PO ×2 (11:59)
[2021-08-17] MEDS ORDERED: DILT30 PO ×2 (12:05)
[2021-08-17] MEDS ORDERED: FURO20 PO ×2 (12:06)
[2021-08-17] MEDS ORDERED: PRED20 PO ×2 (12:07)
[2021-08-17] MEDS ORDERED: ONDA4ODT MM ×2 (12:09)
[2021-08-17] MEDS ORDERED: VISBIOME 112.51 EACH PO ×2 (12:10)
--- NOTE | 2021-08-17 15:12 | NUR ---
Received referral from nurse career services manager (Mono Neves) on 08/17/2021. Patient is to discharge with orders for home health and elected [facility]. Met with patient to further discuss the above. Patient is agreeable to the above. Discussed homebound status definition with patient. Patient verbalized understanding. Discussed what home health is vs what it is not (in home caregivers/housekeeping). Patient verbalized understanding. Discussed the next steps in the process of an initial assessment to determine frequency of visits. Again patient verbalized understanding. Offered a chance for patient to ask questions regarding the above of which there were none. Gathered all supporting documentation for referral (face sheet, face to face, med list, H&P, discharge summary, and most recent PT assessment) and sent to [facility] for review. No further interventions required. Moira Cardona Referral Liaison
--- NOTE | 2021-08-17 15:17 | NUR ---
DISCHARGE SUMMARY PT A&Ox4; CALM AND COOPERATIVE WITH CARE. PT RESTING IN BED UP TO BATHROOM/BSC WITH 1 PERSON ASSIST. PT REPORTS HEADACHE THIS AM, MEDCIATED x1 WITH TYLENOL WITH POSITIVE RESULTS. PT SOB WITH EXERTION, PT ON RA WHILE AT REST, 2L O2 VIA NC WITH ACTIVITY AND WHILE SLEEPING. PT DENIES CHEST PAIN, NAUSEA AND DIZZINESS. PT RECEIVED IV ANTIBIOTICS AND STEROIDS THIS AM. THIS AM HR 120-130; NEW ORDERS FOR ADDITION DOSE OF CARDIZEM, THIS AFTERNOON PT 50-60, WITH 2.5 SECOND PAUSE; NOTIFIED DR MOJICA, NEW ORDER TO REDUCE CARDIZEM AND CONTINUE WITH DISCHARGE PLANS. OTHER VSS. NO OTHER ACUTE CHANGES NOTED. PT EDUCATED ON DISCHARGE INSTRUCTION, FOLLOW UP APPOINTMENT AND MEDICATIONS. [facility] REQUEST. PT LEFT VIA WHEELCHAIR AT [address] PER ORDERS.
== END 2021-08-17 15:15 | disposition home health service (06) | DRG 196 ==
LOC: ER 02:14 → PCU 05:41 → ERHOLD 05:41 → PCU 11:15
PROVIDERS: Family Medicine; Student in an Organized Health Care Education/Training Program; ADMIT Internal Medicine
DX: D86.0 Sarcoidosis of lung (principal); J18.9 Pneumonia, unspecified organism; J96.21 Acute and chronic respiratory failure with hypoxia; J96.22 Acute and chronic respiratory failure with hypercapnia; I50.22 Chronic systolic (congestive) heart failure; I48.20 Chronic atrial fibrillation, unspecified; J44.0 Chronic obstructive pulmonary disease with (acute) lower respiratory infection; J44.1 Chronic obstructive pulmonary disease with (acute) exacerbation; Z68.41 Body mass index [BMI] 40.0-44.9, adult; K21.9 Gastro-esophageal reflux disease without esophagitis; Z23 Encounter for immunization; Z20.822 Contact with and (suspected) exposure to COVID-19; E66.9 Obesity, unspecified; F41.8 Other specified anxiety disorders; I48.0 Paroxysmal atrial fibrillation; Z88.2 Allergy status to sulfonamides; Z88.5 Allergy status to narcotic agent; Z88.6 Allergy status to analgesic agent; Z91.048 Other nonmedicinal substance allergy status; Z79.899 Other long term (current) drug therapy; Z90.710 Acquired absence of both cervix and uterus; Z90.722 Acquired absence of ovaries, bilateral; Z90.49 Acquired absence of other specified parts of digestive tract; Z98.890 Other specified postprocedural states; Z87.891 Personal history of nicotine dependence
CPT/HCPCS: 0241U; 36415; 71045; 71046; 80053; 82550; 83735; 83880; 84443; 84484; 85025; 85610; 86140; 87070; 87205; 90686; 92610; 93005; 93010; 94640; 94644; 94664; 94760; 94761; 96365; 96366; 96367; 96375; 96376; 97110; 97116; 97162; 97530; 99285-25; A9270; G0008; J0456; J0696; J2405; J2930; J3010; J7050

== ENCOUNTER 2021-10-16 14:03 | Inpatient (IN) | payer OTHER ==
[~2021-10-16] VITALS: Ht 152.4 cm; Wt 111.9 kg
[~2021-10-16 14:03] MED LIST changes: +AZIT500 PO; +Acetaminophen650 M1 PO; +CEFDINIR300 M1 PO; +DILT30 PO; +FURO20 PO; +LANOXIN125 MCG PO; +METO100ER PO; +ONDA4ODT MM; +VISBIOME 112.51 EACH PO
[2021-10-16] MEDS ORDERED: DILT60 PO (14:54)
[2021-10-16 15:05] LABS: BASOPHILS ABSOLUTE AUTO 0.08 K/mm3 (0.00-0.23); BASOPHILS PERCENT AUTO 1 % (0-2); EOSINOPHILS ABSOLUTE AUTO 0.38 K/mm3 (0.00-0.68); EOSINOPHILS PERCENT AUTO 3 % (0-6); Hematocrit 40.6 % (33.0-51.0); Hemoglobin 13.1 g/dL (11.5-16.0); IMMATURE GRAN ABSOLUTE AUTO 0.05 K/mm3 (0.00-0.10); IMMATURE GRAN PERCENT AUTO 0 % (0-1); LYMPHOCYTES ABSOLUTE AUTO 1.12 K/mm3 (0.84-5.20); LYMPHOCYTES PERCENT AUTO 9 % (21-46); MONOCYTES ABSOLUTE AUTO 0.81 K/mm3 (0.16-1.47); MONOCYTES PERCENT AUTO 7 % (4-13); Mean Corpuscular HGB 29.2 pg (26.0-34.0); Mean Corpuscular HGB Conc 32.3 g/dL (31.5-36.5); Mean Corpuscular Volume 91 fL (80-100); Mean Platelet Volume 10.4 fL (9.1-12.4); NEUTROPHILS ABSOLUTE AUTO 9.59 K/mm3 (1.96-9.15); NEUTROPHILS PERCENT AUTO 80 % (41-73); Platelet Count 292 K/mm3 (150-400); RDW Coefficient Variation 14.5 % (11.7-14.2); RDW Standard Deviation 47.5 fL (35.1-46.3); Red Blood Cell Count 4.48 M/mm3 (3.80-5.20); White Blood Cell Count 12.03 K/mm3 (4.00-11.30)
[2021-10-16 15:23] LABS: Alanine Aminotransfer (ALT/SGP 16 U/L (12-78); Albumin/Globulin Ratio 0.8 (0.8-1.8); Alk Phos 94 U/L (50-136); Anion Gap 5 mmol/L (6-16); Aspartate Aminotrans (AST/SGOT 12 U/L (12-37); Bilirubin, Total 0.4 mg/dL (0.1-1.0); Blood Urea Nitrogen 10 mg/dL (8-24); Bun/Creatinine Ratio 15.8 (12.0-20.0); CO2, Blood 28 mmol/L (21-32); Calcium, Blood 8.8 mg/dL (8.5-10.1); Chloride, Blood 108 mmol/L (98-108); Creatinine, Blood 0.63 mg/dL (0.40-1.00); Globulin, Blood 3.6 g/dL (2.2-4.0); Glomerular Filtration Rate >60 (60-); Glucose, Blood 123 mg/dL (70-99); Potassium, Blood 3.6 mmol/L (3.5-5.5); Sodium, Blood 141 mmol/L (136-145); Total Protein, Blood 6.6 g/dL (6.4-8.2)
[2021-10-16 16:21] LABS: Digoxin (Lanoxin) 0.35 ug/mL (0.80-2.00)
--- NOTE | 2021-10-16 19:25 | NUR ---
TRANSFER UPDATE PT ARRIVED TO UNIT AT 1835 VIA RADHIKARJIM AND . PT ABLE TO TRANSFER SELF TO BED, SBA.
[2021-10-17 03:40] LABS: BASOPHILS ABSOLUTE AUTO 0.02 K/mm3 (0.00-0.23); BASOPHILS PERCENT AUTO 0 % (0-2); EOSINOPHILS PERCENT AUTO 0 % (0-6); Hematocrit 43.1 % (33.0-51.0); Hemoglobin 13.8 g/dL (11.5-16.0); IMMATURE GRAN ABSOLUTE AUTO 0.02 K/mm3 (0.00-0.10); IMMATURE GRAN PERCENT AUTO 0 % (0-1); LYMPHOCYTES ABSOLUTE AUTO 0.48 K/mm3 (0.84-5.20); LYMPHOCYTES PERCENT AUTO 9 % (21-46); MONOCYTES ABSOLUTE AUTO 0.03 K/mm3 (0.16-1.47); MONOCYTES PERCENT AUTO 1 % (4-13); Mean Corpuscular HGB 28.9 pg (26.0-34.0); Mean Corpuscular Volume 90 fL (80-100); NEUTROPHILS ABSOLUTE AUTO 4.97 K/mm3 (1.96-9.15); NEUTROPHILS PERCENT AUTO 90 % (41-73); Platelet Count 305 K/mm3 (150-400); RDW Coefficient Variation 14.2 % (11.7-14.2); Red Blood Cell Count 4.78 M/mm3 (3.80-5.20); White Blood Cell Count 5.52 K/mm3 (4.00-11.30)
[2021-10-17 03:55] LABS: International Normalized Ratio 1.07; Prothrombin Time Results 11.2 Sec (9.7-11.5)
[2021-10-17 04:06] LABS: Anion Gap 6 mmol/L (6-16); Blood Urea Nitrogen 11 mg/dL (8-24); Bun/Creatinine Ratio 17.5 (12.0-20.0); CO2, Blood 28 mmol/L (21-32); Calcium, Blood 9.3 mg/dL (8.5-10.1); Chloride, Blood 106 mmol/L (98-108); Creatinine, Blood 0.63 mg/dL (0.40-1.00); Glomerular Filtration Rate >60 (60-); Glucose, Blood 169 mg/dL (70-99); Potassium, Blood 4.1 mmol/L (3.5-5.5); Sodium, Blood 140 mmol/L (136-145)
--- NOTE | 2021-10-17 05:40 | NUR ---
SHIFT SUMMARY PT ARRIVED TO UNIT JUST BEFORE SHIFT CHANGE. PT ALERT AND ORIENTED X4. HR AFIB 80'S TO 110'S AT REST. PT INDEPENDENT TO GO TO BATHROOM. HR TACHY WITH AMBULATION, 130'S-140'S. BP STABLE. ON 2L OF OXYGEN MAINTAINING SATS OVER 94%. IN BED SLEEPING WITH CALL ALARM AT SIDE. WILL CONTINUE TO MONITOR UNTIL REPORT GIVEN TO DAYSHIFT RN.
--- NOTE | 2021-10-17 17:17 | NUR ---
SHIFT SUMMARY PT ALERT AND ORIENTED. O2 SATS REMAIN ABOVE 90% ON RA AT THIS TIME. PT FEELS SOB AT TIMES AND PLACED ON 2L NC. BP STABLE. HR HAS BEEN AFIB 80-100 THIS AFTERNOON. PT DENIES ANY CP/PRESSURE. PT ABLE TO AMBULATE IN THE ROOM INDEPENDENTLY. WILL CONTINUE TO MONITOR AND REPORT TO ONCOMING RN.
[2021-10-18 04:01] LABS: Hematocrit 42.2 % (33.0-51.0); Hemoglobin 13.2 g/dL (11.5-16.0); Mean Corpuscular HGB 28.9 pg (26.0-34.0); Mean Corpuscular HGB Conc 31.3 g/dL (31.5-36.5); Mean Corpuscular Volume 92 fL (80-100); Platelet Count 314 K/mm3 (150-400); RDW Coefficient Variation 14.6 % (11.7-14.2); RDW Standard Deviation 49.5 fL (35.1-46.3); Red Blood Cell Count 4.57 M/mm3 (3.80-5.20)
[2021-10-18 04:35] LABS: Alanine Aminotransfer (ALT/SGP 15 U/L (12-78); Albumin, Blood 3.1 g/dL (3.4-5.0); Albumin/Globulin Ratio 0.9 (0.8-1.8); Alk Phos 93 U/L (50-136); Anion Gap 7 mmol/L (6-16); Aspartate Aminotrans (AST/SGOT 5 U/L (12-37); Bilirubin, Total 0.2 mg/dL (0.1-1.0); Blood Urea Nitrogen 23 mg/dL (8-24); Bun/Creatinine Ratio 29.8 (12.0-20.0); CO2, Blood 29 mmol/L (21-32); Calcium, Blood 9.3 mg/dL (8.5-10.1); Chloride, Blood 105 mmol/L (98-108); Creatinine, Blood 0.77 mg/dL (0.40-1.00); Globulin, Blood 3.5 g/dL (2.2-4.0); Glomerular Filtration Rate >60 (60-); Glucose, Blood 152 mg/dL (70-99); Potassium, Blood 4.3 mmol/L (3.5-5.5); Sodium, Blood 141 mmol/L (136-145); Total Protein, Blood 6.6 g/dL (6.4-8.2)
--- NOTE | 2021-10-18 06:31 | NUR ---
SHIFT SUMMARY PT ALERT AND ORIENTED X4. HR MUCH BETTER TONIGHT. AFIB 60'S TO 90'S AT REST. NOT TACHY WITH AMBULATION PREVIOUS EVENING. BP STABLE. BP INDEPENDENT FOR ADLS. RESTING COMFORTABLY THROUGH MOST OF NIGHT. IN BED SLEEPING WITH CALL ALARM AT SIDE. WILL CONTINUE TO MONITOR UNTIL REPORT GIVEN TO DAYSHIFT RN
[2021-10-18] MEDS ORDERED: PRED20 PO (11:36)
[2021-10-18] MEDS ORDERED: POTCHL20ER PO (11:38)
--- NOTE | 2021-10-18 13:27 | NUR ---
DISCHARGE PT PROVIDED DC INSTRUCTIONS AND EDUCATED ON MEDICATIONS. ALL QUESTIONS ANSWERED. PT TAKEN OUT BY OJ
== END 2021-10-18 13:30 | disposition home or self-care (01) | DRG 308 ==
LOC: ER 14:03 → PCU 14:04
PROVIDERS: Emergency Medicine; Internal Medicine; ADMIT Family Medicine
DX: I48.20 Chronic atrial fibrillation, unspecified (principal); I50.23 Acute on chronic systolic (congestive) heart failure; J44.1 Chronic obstructive pulmonary disease with (acute) exacerbation; Z68.42 Body mass index [BMI] 45.0-49.9, adult; I11.0 Hypertensive heart disease with heart failure; D86.9 Sarcoidosis, unspecified; E66.9 Obesity, unspecified; F32.A Depression, unspecified; F41.9 Anxiety disorder, unspecified; D72.829 Elevated white blood cell count, unspecified; Z87.891 Personal history of nicotine dependence; Z79.01 Long term (current) use of anticoagulants; Z79.899 Other long term (current) drug therapy; Z88.2 Allergy status to sulfonamides; Z88.5 Allergy status to narcotic agent; Z88.8 Allergy status to other drugs, medicaments and biological substances
CPT/HCPCS: 36415; 71045; 80048; 80053; 80162; 83735; 83880; 84145; 84484; 85025; 85027; 85610; 93005; 93010; 94640; 94760; 96374; 96375; 96376; 99285-25; A9270; G0378; J1940; J2930; J7512

== ENCOUNTER 2023-04-12 11:16 | Inpatient (IN) | payer OTHER ==
[~2023-04-12] VITALS: Ht 152.4 cm; Wt 88.6 kg
[~2023-04-12 11:16] MED LIST changes: +AMOCLA875 PO; +Amoxicillin500 MG PO; +DILT60 PO
[2023-04-12 12:05] LABS: Hematocrit 38.1 % (33.0-51.0); Hemoglobin 12.2 g/dL (11.5-16.0); Mean Corpuscular HGB 28.4 pg (26.0-34.0); Mean Corpuscular Volume 89 fL (80-100); Mean Platelet Volume 9.8 fL (9.1-12.4); Platelet Count 340 K/mm3 (150-400); RDW Coefficient Variation 14.8 % (11.7-14.2); RDW Standard Deviation 47.6 fL (35.1-46.3); White Blood Cell Count 13.95 K/mm3 (4.00-11.30)
[2023-04-12 12:24] LABS: Albumin, Blood 2.9 g/dL (3.4-5.0); Albumin/Globulin Ratio 0.8 (0.8-1.8); Bilirubin, Total 0.4 mg/dL (0.1-1.0); Bun/Creatinine Ratio 28.6 (12.0-20.0); Calcium, Blood 8.9 mg/dL (8.5-10.1); Creatinine, Blood 0.63 mg/dL (0.40-1.00); Globulin, Blood 3.7 g/dL (2.2-4.0); Potassium, Blood 4.6 mmol/L (3.5-5.5); Total Protein, Blood 6.6 g/dL (6.4-8.2)
[2023-04-12 12:43] LABS: BASOPHILS ABSOLUTE MAN 0.13 K/mm3 (0.00-0.23); BASOPHILS PERCENT MAN 1 % (0-2); EOSINOPHILS PERCENT MAN 0 % (0-6); LYMPHOCYTES ABSOLUTE MAN 0.41 K/mm3 (0.84-5.20); LYMPHOCYTES PERCENT MAN 3 % (21-46); MONOCYTES ABSOLUTE MAN 0.41 K/mm3 (0.16-1.47); MONOCYTES PERCENT MAN 3 % (4-13); NEUTROPHILS ABSOLUTE MAN 12.97 K/mm3 (1.96-9.15); SEG NEUTROPHILS PERCENT MAN 93 % (41-73); TOTAL CELLS COUNTED 100
--- NOTE | 2023-04-12 16:16 | NUR ---
PT CHART REVIEWED FOR ADMISSION
[2023-04-12] MEDS ORDERED: FURO40 PO (18:11)
[2023-04-12] MEDS ORDERED: LISI5 PO (18:12)
[2023-04-12] MEDS ORDERED: WIXELA 250-501 EAC1 INH (18:14)
--- NOTE | 2023-04-12 18:27 | NUR ---
pt arrived to 336 via gurney from ED, report obtained, pt able to stand and tx to bed with sba, a/ox4, pleasant and cooperative with care, follows commands well, denies pain at this time, lungs are tight with exp wheezing t/o, resp even and labored, becomes very dyspnic with activity, currently on 4 liters of via n/c, reports an occational productive cough of yellow sputum, is home o2 dependant on 2.5 liters at hs, hrr, tele in place running paced, trace edema noted to b/l le, ppp+2, cap refill <3 sec, vs stable, afebrile, piv is clear and patent, btx4, abd round soft nontender, voids but she reports small amounts at a time, skin c/w/d, maew slowly, nicol, call light in reach.
[2023-04-12 19:56] VITALS: BP 122/49
--- NOTE | 2023-04-13 04:36 | NUR ---
MARINE DRAFTER SUMMARY NO ACUTE EVENTS OVERNIGHT. A&OX4. PATIENT EFFECTIVELY COMMUNICATES NEEDS. VSS. RR EVEN AND SLIGHTLY LABORED AT REST ON 4L/MIN O2. EXERTIONAL DYSPNEA NOTED. PATIENT'S REPORTED BASELINE IS 2-3L/MIN O2 AT NIGHT. TELE REVEALS A PACED RHYTHM, HR 70'S. PATIENT IS A STAND-BY ASSIST TO THE [facility] COMMODE RELATED TO EXERTIONAL DYSPNEA. BED LOW AND LOCKED. CALL LIGHT WITHIN REACH. THIS RN WILL CONTINUE TO MONITOR.
[2023-04-13 04:54] VITALS: BP 151/75
[2023-04-13 06:10] LABS: Hematocrit 39.7 % (33.0-51.0); Hemoglobin 12.6 g/dL (11.5-16.0); Mean Corpuscular HGB 28.8 pg (26.0-34.0); Mean Corpuscular HGB Conc 31.7 g/dL (31.5-36.5); Mean Corpuscular Volume 91 fL (80-100); Mean Platelet Volume 9.7 fL (9.1-12.4); Platelet Count 334 K/mm3 (150-400); RDW Coefficient Variation 14.6 % (11.7-14.2); RDW Standard Deviation 48.8 fL (35.1-46.3); Red Blood Cell Count 4.37 M/mm3 (3.80-5.20); White Blood Cell Count 5.96 K/mm3 (4.00-11.30)
[2023-04-13 06:36] LABS: Albumin, Blood 3.2 g/dL (3.4-5.0); Albumin/Globulin Ratio 0.8 (0.8-1.8); Bilirubin, Total 0.4 mg/dL (0.1-1.0); Bun/Creatinine Ratio 36.6 (12.0-20.0); Calcium, Blood 9.5 mg/dL (8.5-10.1); Creatinine, Blood 0.66 mg/dL (0.40-1.00); Magnesium, Blood 2.1 mg/dL (1.6-2.4); Potassium, Blood 4.8 mmol/L (3.5-5.5); Total Protein, Blood 7.2 g/dL (6.4-8.2)
[2023-04-13 07:07] VITALS: BP 115/46
[2023-04-13 15:31] VITALS: BP 119/74
--- NOTE | 2023-04-13 16:31 | NUR ---
DAYSHIFT SUMMARY Patient alert & oriented x4. Here for PNA. Currently receiving IV ABX. Patient SBA-olamide help needed. SOB with activity uses BSC. 3lpm to maintain sats. Educated patient on ignition sources and risk of injury when O2 in use. Patient denied smoking, or having any sources in her personal belongings. Tele in place, NSR. Will continue plan of care. Plan to continue supportive measures, vital stable.
--- NOTE | 2023-04-14 03:55 | NUR ---
ACUTE CARE PHYSICAL THERAPIST SUMMARY NO ACUTE EVENTS OVERNIGHT. A&OX4. PATIENT EFFECTIVELY COMMUNICATES NEEDS. VSS. RR EVEN AND UNLABORED ON 3L/MIN O2. PATIENT'S REPORTED BASAELINE IS 2-3L/MIN AT NIGHT. TELE REVEALS A PACED RHYTHM, HR 80'S. PATIENT IS TOLERATING ABO THERAPY. NO ACUTE SIGNS OR SYMPTOMS. BED LOW AND LOCKED. CALL LIGHT WITHIN REACH. THIS RN WILL CONTINUE TO MONITOR.
[2023-04-14 04:14] VITALS: BP 100/79
[2023-04-14 04:25] VITALS: BP 149/76
[2023-04-14 05:17] LABS: Hematocrit 39.5 % (33.0-51.0); Hemoglobin 12.7 g/dL (11.5-16.0); Mean Corpuscular HGB 28.3 pg (26.0-34.0); Mean Corpuscular HGB Conc 32.2 g/dL (31.5-36.5); Mean Corpuscular Volume 88 fL (80-100); Mean Platelet Volume 10.1 fL (9.1-12.4); Platelet Count 359 K/mm3 (150-400); RDW Coefficient Variation 14.5 % (11.7-14.2); RDW Standard Deviation 46.5 fL (35.1-46.3); Red Blood Cell Count 4.48 M/mm3 (3.80-5.20); White Blood Cell Count 11.95 K/mm3 (4.00-11.30)
[2023-04-14 05:40] LABS: Albumin, Blood 3.1 g/dL (3.4-5.0); Albumin/Globulin Ratio 0.8 (0.8-1.8); Bilirubin, Total 0.3 mg/dL (0.1-1.0); Bun/Creatinine Ratio 46.7 (12.0-20.0); Calcium, Blood 9.1 mg/dL (8.5-10.1); Creatinine, Blood 0.64 mg/dL (0.40-1.00); Globulin, Blood 3.7 g/dL (2.2-4.0); Potassium, Blood 4.9 mmol/L (3.5-5.5); Total Protein, Blood 6.8 g/dL (6.4-8.2)
[2023-04-14 08:30] VITALS: BP 143/64
[2023-04-14 16:43] VITALS: BP 111/62
--- NOTE | 2023-04-14 17:46 | NUR ---
SHIFT SUMMARY PATIENT IS ALERT AND ORIENTED. PATIENT HAS HAD NO ACUTE EVENTS THIS SHIFT. VITAL SIGNS REVIEWED. PATIENT IS STILL ON 3L NC. PATIENT HAS HAD NO COMPLAINTS OF PAIN, NAUSEA, SOB OR VOMITTING THIS SHIFT. PATIENT IS PLANNING ON DISCHARGING TOMORROW. BED IN LOCKED AND LOWEST POSITION. CALL LIGHT IN PLACE. WILL MONITOR UNTIL SHIFT CHANGE.
[2023-04-14 19:44] VITALS: BP 121/64
[2023-04-15 03:58] VITALS: BP 121/47
--- NOTE | 2023-04-15 04:04 | NUR ---
SHIFT SUMMARY PATIENT ALERT, PLEASANT AFFECT. DENIES PAIN NOR DISCOMFORT. VSS, SPO2 97% ON 3L NC. CONTINUES ON TELE, VENT PACED 70's. BRIEFLY COUGHING AFTER BREATHING TREATMENT, FAINT CRACKLES NOTED TO RLL. NO ACUTE CHANGES NOTED OVER NIGHT. BED IN LOW POSITION, CALL LIGHT WITHIN REACH.
[2023-04-15 05:44] LABS: Hematocrit 37.7 % (33.0-51.0); Hemoglobin 12.2 g/dL (11.5-16.0); Mean Corpuscular HGB 28.7 pg (26.0-34.0); Mean Corpuscular HGB Conc 32.4 g/dL (31.5-36.5); Mean Corpuscular Volume 89 fL (80-100); Mean Platelet Volume 9.8 fL (9.1-12.4); Platelet Count 303 K/mm3 (150-400); RDW Coefficient Variation 14.3 % (11.7-14.2); RDW Standard Deviation 46.1 fL (35.1-46.3); Red Blood Cell Count 4.25 M/mm3 (3.80-5.20); White Blood Cell Count 8.96 K/mm3 (4.00-11.30)
[2023-04-15 06:07] LABS: Bun/Creatinine Ratio 49.1 (12.0-20.0); Calcium, Blood 8.6 mg/dL (8.5-10.1); Creatinine, Blood 0.69 mg/dL (0.40-1.00)
[2023-04-15 07:13] VITALS: BP 129/110
[2023-04-15 08:01] VITALS: BP 131/63
[2023-04-15 16:55] VITALS: BP 146/63
--- NOTE | 2023-04-15 17:16 | NUR ---
SHIFT SUMMARY: PATIENT A&OX4. PLEASANT AND COOPERATIVE c CARE. USES CALL LIGHT APPROPRIATELY AND ABLE TO MAKE NEEDS KNOWN. PATIENT DENIES CP/PRESSURE, N/V AND GENERALIZED PAIN. ON TELE, V-PACED HR IN THE 70'S BPM, PLUS 1-2 EDEMA TO BLE'S AND FEET. PATIENT REPORTS SOB c ACTIVITIES, LUNGS HAS WHEEZES T/O TO AUSCULTATION. PATIENT ON 2-3L OF O2 VIA NC c SPO2 RANGES 95-97% T/O SHIFT. PATIENT IS CONTINENT OF BOWELS AND BLADDER AND USES BSC INDEPENDENTLY T/O SHIFT. RECEIVED SCHEDULED MEDS PER EMAR. VITAL SIGNS REVIEWED. PIV TO L HAND SALINE LOCKED. CALL LIGHT IN REACH. PATIENT EDUCATED ON NON SMOKING POLICY, RISK OF INJURY AND IGNITION SOURCES WHEN O2 IN USE. PATIENT DENIES SMOKING AND STATED UNDERSTANDING.
[2023-04-15 19:11] VITALS: BP 129/53
--- NOTE | 2023-04-16 04:00 | NUR ---
SHIFT SUMMARY PATIENT A/Ox4, BRIGHT AFFECT. DENIES PAIN NOR DISCOMFORT. LUNGS CTA, MILD TO MODERATE WHEEZING THROUGHOUT. ENDORSES SOB WITH ACTIVITY. CONTINUES ON O2 2.5L NC, MAINTAINING SPO2%, LOW TO MID 90s. STATES FEELING MUCH BETTER WITH ELEVATING LEGS WHEN IN BED. CONTINUES ON TELE, VENT PACED 70s. EDUCATED ON FIRE SAFETY AND RISK OF INJURY R/T OXYGEN USE, VERBALIZED UNDERSTANDING, DENIES HAVING ACCESS TO ANY SOURCES OF IGNITION. NO ACUTE CHANGES NOTED OVERNIGHT. BED LOCKED AND IN LOW POSITION, CALL LIGHT WITHIN REACH.
[2023-04-16 04:09] VITALS: BP 134/71
[2023-04-16 05:43] LABS: Hematocrit 37.7 % (33.0-51.0); Hemoglobin 12.3 g/dL (11.5-16.0); Mean Corpuscular HGB 28.7 pg (26.0-34.0); Mean Corpuscular HGB Conc 32.6 g/dL (31.5-36.5); Mean Corpuscular Volume 88 fL (80-100); Mean Platelet Volume 9.9 fL (9.1-12.4); Platelet Count 327 K/mm3 (150-400); RDW Coefficient Variation 14.3 % (11.7-14.2); RDW Standard Deviation 45.4 fL (35.1-46.3); Red Blood Cell Count 4.29 M/mm3 (3.80-5.20); White Blood Cell Count 10.18 K/mm3 (4.00-11.30)
[2023-04-16 06:31] LABS: Albumin, Blood 2.8 g/dL (3.4-5.0); Albumin/Globulin Ratio 0.9 (0.8-1.8); Bilirubin, Total 0.2 mg/dL (0.1-1.0); Bun/Creatinine Ratio 54.2 (12.0-20.0); Calcium, Blood 8.8 mg/dL (8.5-10.1); Creatinine, Blood 0.55 mg/dL (0.40-1.00); Globulin, Blood 3.2 g/dL (2.2-4.0); Potassium, Blood 4.7 mmol/L (3.5-5.5)
[2023-04-16 07:29] VITALS: BP 144/66
[2023-04-16 15:42] VITALS: BP 148/76
--- NOTE | 2023-04-16 17:31 | NUR ---
SHIFT SUMMARY: PATIENT A&OX4. PLEASANT AND COOPERATIVE c CARE. DENIES CP/PRESSURE, SOB, N/V. REPORTS MUSCLE DISCOMFORT TO L THIGH, MEDICATED c [place] TOP, c GOOD EFFECT. ON TELE, V-PACED HR IN 70'S BPM. PATIENT O2 AT BASELINE 2-2.5L c SPO2 RANGES 94-95%. LUNGS STILL WHEEZY T/O TO AUSCULTATION. PATIENT IS CONTINENT OF BOWELS AND BLADDER AND USES BSC INDEPENDENTLY. RECEIVED SCHEDULED MEDS PER EMAR. VITAL SIGNS REVIEWED. PATIENT REPORTS FEELING "A LOT BETTER TODAY COMPARED YESTERDAY." EDEMA TO BLE'S IMPROVING AND HAS BEEN ELEVATED ON PILLOWS T/O SHIFT. PIV TO LAC SALINE LOCKED. CALL LIGHT IN REACH. PATIENT EDUCATED ON NON SMOKING POLICY, RISK OF INJURY AND IGNITION SOURCES WHEN O2 IN USE. PATIENT DENIES SMOKING AND STATED UNDERSTANDING.
[2023-04-16 19:50] VITALS: BP 146/63
[2023-04-17 03:14] VITALS: BP 137/63
--- NOTE | 2023-04-17 04:37 | NUR ---
SHIFT SUMMARY PATIENT A/Ox4, ASSISTED PATIENT WITH REPOSITIONING LEGS ON PILLOWS. DENIES PAIN NOR DISCOMFORT. STATES LLE IS SORE WHEN GETTING INTO AND OUT OF BED. ONGOING BLE EDEMA IMPROVING. VSS, SPO2 97% ON 2.5L VIA NC. NO ACUTE CHANGES NOTED OVERNIGHT. EDUCATED ON FIRE SAFETY AND NON-SMOKING POLICY, VERBALIZED UNDERSTANDING, DENIES HAVING ANY SOURCES OF IGNITION. BED IN LOW POSITON, CALL LIGHT WITHIN REACH.
[2023-04-17 05:00] LABS: Hematocrit 37.9 % (33.0-51.0); Hemoglobin 12.3 g/dL (11.5-16.0); Mean Corpuscular HGB 28.5 pg (26.0-34.0); Mean Corpuscular HGB Conc 32.5 g/dL (31.5-36.5); Mean Corpuscular Volume 88 fL (80-100); Mean Platelet Volume 9.9 fL (9.1-12.4); Platelet Count 298 K/mm3 (150-400); RDW Coefficient Variation 14.4 % (11.7-14.2); RDW Standard Deviation 46.9 fL (35.1-46.3); Red Blood Cell Count 4.32 M/mm3 (3.80-5.20); White Blood Cell Count 8.23 K/mm3 (4.00-11.30)
[2023-04-17 05:36] LABS: Albumin, Blood 2.7 g/dL (3.4-5.0); Albumin/Globulin Ratio 0.9 (0.8-1.8); Bilirubin, Total 0.2 mg/dL (0.1-1.0); Bun/Creatinine Ratio 42.6 (12.0-20.0); Calcium, Blood 8.8 mg/dL (8.5-10.1); Creatinine, Blood 0.56 mg/dL (0.40-1.00); Potassium, Blood 4.9 mmol/L (3.5-5.5); Total Protein, Blood 5.7 g/dL (6.4-8.2)
[2023-04-17 07:31] VITALS: BP 153/59
[2023-04-17 16:37] VITALS: BP 139/70
--- NOTE | 2023-04-17 18:05 | NUR ---
SHIFT SUMMARY: NO NEW ACUTE CHANGES IN PATIENT CONDITION THIS SHIFT. PATIENT A&OX4. PLEASANT AND COOPERATIVE c CARE. DENIES CP/PRESSURE, SOB, NV. STILL ON TELE, V-PACED HR IN THE 70'S BPM. LUNGS STILL WHEEZY TO RUL, RML TO AUSCULTATIONS. ON 2L OF O2 VIA NC c SPO2 RANGES 96-98% T/O SHIFT. EDEMA TO BLE'S IMPROVING, RECEIVED OT DOSE OF LASIX TODAY. PATIENT REPORTS "I'M ABLE TO LAY FLAT IN BED WITHOUT FEELING SOB AND I'M FEELING SO MUCH BETTER." PATIENT IS CONTINENCE OF BOWELS AND BLADDER, USES BSC INDEPENDENTLY T/O SHIFT. RECEIVED SCHEDULED MEDS PER EMAR. VITAL SIGNS REVIEWED. PIV TO LAC SALINE LOCKED. CALL LIGHT IN REACH. PATIENT EDUCATED ON NON SMOKING POLICY, RISK OF INJURY AND IGNITION SOURCES WHEN O2 IN USE. PATIENT DENIES SMOKING AND STATED UNDERSTANDING.
[2023-04-17 19:13] VITALS: BP 142/57
[2023-04-18 02:06] VITALS: BP 151/63
[2023-04-18 05:24] LABS: Hematocrit 40.3 % (33.0-51.0); Mean Corpuscular HGB 28.1 pg (26.0-34.0); Mean Corpuscular HGB Conc 32.3 g/dL (31.5-36.5); Mean Corpuscular Volume 87 fL (80-100); Platelet Count 309 K/mm3 (150-400); RDW Coefficient Variation 14.3 % (11.7-14.2); RDW Standard Deviation 45.8 fL (35.1-46.3); Red Blood Cell Count 4.63 M/mm3 (3.80-5.20); White Blood Cell Count 9.45 K/mm3 (4.00-11.30)
[2023-04-18 05:43] LABS: Bun/Creatinine Ratio 55.3 (12.0-20.0); Calcium, Blood 8.8 mg/dL (8.5-10.1); Creatinine, Blood 0.52 mg/dL (0.40-1.00); Potassium, Blood 4.6 mmol/L (3.5-5.5)
[2023-04-18 05:57] LABS: BASOPHILS PERCENT MAN 0 % (0-2); EOSINOPHILS PERCENT MAN 0 % (0-6); LYMPHOCYTES ABSOLUTE MAN 0.37 K/mm3 (0.84-5.20); LYMPHOCYTES PERCENT MAN 4 % (21-46); MONOCYTES ABSOLUTE MAN 0.28 K/mm3 (0.16-1.47); MONOCYTES PERCENT MAN 3 % (4-13); NEUTROPHILS ABSOLUTE MAN 8.78 K/mm3 (1.96-9.15); SEG NEUTROPHILS PERCENT MAN 93 % (41-73); TOTAL CELLS COUNTED 100
--- NOTE | 2023-04-18 07:32 | NUR ---
SHIFT SUMMARY PATIENT A/Ox4, PLEASANT AFFECT. DENIES PAIN NOR DISCOMFORT. LUNGS CTA, MINIMAL WHEEZING, MARKED IMPROVEMENT. MAINTAINING SPO2 ON 2L NC, LOW TO MID 90s. INDEPENDANT TO BSC. BLE EDEMA IS IMPROVED. NO ACUTE CHANGES NOTED OVERNIGHT. BED LOW, CALL LIGHT WITHIN.
[2023-04-18 07:59] VITALS: BP 123/95
[2023-04-18] MEDS ORDERED: Prednisone10 MG PO (15:32)
[2023-04-18] MEDS ORDERED: LEVO750 PO (15:33)
--- NOTE | 2023-04-18 17:33 | NUR ---
DISCHARGE PATIENT A&OX4. COMPLAINED OF NERVE PAIN IN LEFT THIGH, TREATED WITH PAIN CREAM. DENIED ANY CHEST PAIN, HEADACHE, OR DIZZINESS. PATIENT WAS WEARING 2L O2 VIA NASAL CANNULA. PT EZEKIEL NOTED PATIENT WOULD NEED PT WITH HOME HEALTH UPON DISCHARGE. NO ACUTE EVENTS DURING THIS SHIFT. SOURCES OF IGNITION ASSESSED FOR THIS SHIFT DURING HOURLY ROUDING. PATIENT DISCHARGED WITH CAREGIVER VIA WHEELCHAIR ESCORT AT APPROX 1545.
== END 2023-04-18 15:58 | disposition home health service (06) | DRG 193 ==
LOC: ER 11:16 → MEDS 14:32 → ENPENDDIS 04-18 14:41 → MEDS 04-18 15:58
PROVIDERS: Emergency Medicine; Hospitalist; ADMIT Internal Medicine
DX: J18.9 Pneumonia, unspecified organism (principal); J96.21 Acute and chronic respiratory failure with hypoxia; I50.22 Chronic systolic (congestive) heart failure; J44.0 Chronic obstructive pulmonary disease with (acute) lower respiratory infection; J44.1 Chronic obstructive pulmonary disease with (acute) exacerbation; I11.0 Hypertensive heart disease with heart failure; I95.9 Hypotension, unspecified; S86.919A Strain of unspecified muscle(s) and tendon(s) at lower leg level, unspecified leg, initial encounter; E66.9 Obesity, unspecified; F41.9 Anxiety disorder, unspecified; F32.A Depression, unspecified; D86.9 Sarcoidosis, unspecified; I48.91 Unspecified atrial fibrillation; B96.89 Other specified bacterial agents as the cause of diseases classified elsewhere; Z79.01 Long term (current) use of anticoagulants; Z90.710 Acquired absence of both cervix and uterus; Z90.49 Acquired absence of other specified parts of digestive tract; Z99.81 Dependence on supplemental oxygen; Z79.51 Long term (current) use of inhaled steroids; Z79.899 Other long term (current) drug therapy; Z88.2 Allergy status to sulfonamides; Z88.5 Allergy status to narcotic agent; Z91.048 Other nonmedicinal substance allergy status; Z79.2 Long term (current) use of antibiotics; Z98.890 Other specified postprocedural states; Z68.38 Body mass index [BMI] 38.0-38.9, adult; Z87.891 Personal history of nicotine dependence
CPT/HCPCS: 36415; 71045; 80048; 80053; 83605; 83735; 83880; 84484; 85025; 85027; 87040; 87070; 87205; 93005; 93010; 94640; 94644; 94664; 94760; 94762; 96365; 96366; 96367; 96375; 97116; 97161; 97530; 99285-25; A9270; J0456; J0696; J1940; J2930; J7050

== ENCOUNTER 2023-05-20 19:35 | Inpatient (IN) | payer OTHER ==
[~2023-05-20] VITALS: Ht 152.4 cm; Wt 89.5 kg
[~2023-05-20 19:35] MED LIST changes: +LEVO750 PO; +Prednisone10 MG PO; +WIXELA 250-501 EAC1 INH
[2023-05-20 19:59] LABS: BASOPHILS ABSOLUTE AUTO 0.06 K/mm3 (0.00-0.23); BASOPHILS PERCENT AUTO 1 % (0-2); EOSINOPHILS ABSOLUTE AUTO 0.04 K/mm3 (0.00-0.68); EOSINOPHILS PERCENT AUTO 0 % (0-6); Hematocrit 36.2 % (33.0-51.0); Hemoglobin 11.6 g/dL (11.5-16.0); IMMATURE GRAN ABSOLUTE AUTO 0.05 K/mm3 (0.00-0.10); IMMATURE GRAN PERCENT AUTO 1 % (0-1); LYMPHOCYTES ABSOLUTE AUTO 0.68 K/mm3 (0.84-5.20); LYMPHOCYTES PERCENT AUTO 6 % (21-46); MONOCYTES ABSOLUTE AUTO 0.75 K/mm3 (0.16-1.47); MONOCYTES PERCENT AUTO 7 % (4-13); Mean Corpuscular HGB 28.4 pg (26.0-34.0); Mean Corpuscular Volume 89 fL (80-100); Mean Platelet Volume 9.8 fL (9.1-12.4); NEUTROPHILS ABSOLUTE AUTO 9.01 K/mm3 (1.96-9.15); NEUTROPHILS PERCENT AUTO 85 % (41-73); Platelet Count 328 K/mm3 (150-400); RDW Coefficient Variation 14.5 % (11.7-14.2); RDW Standard Deviation 46.7 fL (35.1-46.3); Red Blood Cell Count 4.08 M/mm3 (3.80-5.20); White Blood Cell Count 10.59 K/mm3 (4.00-11.30)
[2023-05-20 20:21] LABS: Albumin, Blood 2.8 g/dL (3.4-5.0); Albumin/Globulin Ratio 0.8 (0.8-1.8); Bilirubin, Total 0.2 mg/dL (0.1-1.0); Bun/Creatinine Ratio 17.2 (12.0-20.0); Calcium, Blood 8.8 mg/dL (8.5-10.1); Creatinine, Blood 0.52 mg/dL (0.40-1.00); Globulin, Blood 3.3 g/dL (2.2-4.0); Potassium, Blood 4.2 mmol/L (3.5-5.5); Total Protein, Blood 6.1 g/dL (6.4-8.2)
--- NOTE | 2023-05-20 23:50 | NUR ---
ATTEMPTED TO CALL FOR REPORT- ED RN NOT AVAILABLE AT THIS TIME. CALLED DR ELDER WITH THE RESULT OF THE RECENTLY ORDERED D-DIMER SHE IS ORDERING A CT SCAN TO R/O PE.
--- NOTE | 2023-05-21 00:52 | NUR ---
RECIEVED A CALL FROM ED- TELEPHONE REPORT COMPLETED. PT TO ARRIVE SHORTLY
[2023-05-21 01:07] VITALS: BP 106/86
[2023-05-21] MEDS ORDERED: ALBU2.5V5 INH (01:49)
--- NOTE | 2023-05-21 04:42 | NUR ---
SHIFT SUMMARY- PT ADMITTED THROUGH THE ED FOR ACUTE RESPIRATORY FAILURE. ADMISSION COMPLETED WITH THE PT INCLUDING MEDICATION LIST. LUNG SOUNDS COARSE AND WHEEZY UPON ARRIVAL, PT NOT IN ANY DISTRESS AT THAT TIME ON 3L O2 VIA NC. 2 RN SKIN CHECK REVEALS NO SKIN ISSUES. PT IN BED CALL LIGHT IN REACH DENIES ANY PAIN NO S&S OF DISTRESS NOTED.
[2023-05-21 05:52] VITALS: BP 113/49
[2023-05-21 05:53] LABS: BASOPHILS ABSOLUTE AUTO 0.03 K/mm3 (0.00-0.23); BASOPHILS PERCENT AUTO 0 % (0-2); EOSINOPHILS PERCENT AUTO 0 % (0-6); Hemoglobin 12.4 g/dL (11.5-16.0); IMMATURE GRAN ABSOLUTE AUTO 0.06 K/mm3 (0.00-0.10); IMMATURE GRAN PERCENT AUTO 1 % (0-1); LYMPHOCYTES ABSOLUTE AUTO 0.24 K/mm3 (0.84-5.20); LYMPHOCYTES PERCENT AUTO 2 % (21-46); MONOCYTES ABSOLUTE AUTO 0.04 K/mm3 (0.16-1.47); MONOCYTES PERCENT AUTO 0 % (4-13); Mean Corpuscular HGB 28.9 pg (26.0-34.0); Mean Corpuscular HGB Conc 32.6 g/dL (31.5-36.5); Mean Corpuscular Volume 89 fL (80-100); Mean Platelet Volume 10.2 fL (9.1-12.4); NEUTROPHILS ABSOLUTE AUTO 9.88 K/mm3 (1.96-9.15); NEUTROPHILS PERCENT AUTO 96 % (41-73); Platelet Count 349 K/mm3 (150-400); RDW Coefficient Variation 14.6 % (11.7-14.2); RDW Standard Deviation 47.1 fL (35.1-46.3); Red Blood Cell Count 4.29 M/mm3 (3.80-5.20); White Blood Cell Count 10.25 K/mm3 (4.00-11.30)
[2023-05-21 06:15] LABS: Bun/Creatinine Ratio 17.5 (12.0-20.0); Calcium, Blood 9.4 mg/dL (8.5-10.1); Creatinine, Blood 0.51 mg/dL (0.40-1.00); Potassium, Blood 4.4 mmol/L (3.5-5.5)
[2023-05-21 07:14] VITALS: BP 144/65
[2023-05-21 14:51] VITALS: BP 137/63
--- NOTE | 2023-05-21 17:37 | NUR ---
DAYSHIFT SUMMARY Patient alert & oriented x4. Transfering to BSC with minimal assistance. 2L oxygen to maintain sats. SOB at rest, pursed lip breathing. IV steriods administred. Plan to continue interventions, and monitor respiratory status.
[2023-05-21 19:30] VITALS: BP 152/56
--- NOTE | 2023-05-22 05:11 | NUR ---
END OF SHIFT SUMMARY PT PLEASANT AND COOPERATIVE WITH CARE PROVIDED. PT A&O x4, VSS. PT DENIES PAIN/DISCOMFORT. NO CHEST PAIN/PRESSURE. RESPIRATORY THERAPY INVOLVED IN CARE. PT SLEPT WELL OVER NIGHT, NO EVENTS NOTED. PT STATED SHE FEELS BETTER TUESDAY EVENING. PT ABLE TO MAKE NEEDS KNOWN. PT PERFERS FEMALE CAREGIVERS. BED IN LOWEST POSITION, CALL LIGHT WITHIN REACH, WCTM.
[2023-05-22 05:37] LABS: Hematocrit 33.9 % (33.0-51.0); Hemoglobin 10.8 g/dL (11.5-16.0); Mean Corpuscular HGB 28.5 pg (26.0-34.0); Mean Corpuscular HGB Conc 31.9 g/dL (31.5-36.5); Mean Corpuscular Volume 89 fL (80-100); Platelet Count 307 K/mm3 (150-400); RDW Coefficient Variation 14.6 % (11.7-14.2); RDW Standard Deviation 47.9 fL (35.1-46.3); Red Blood Cell Count 3.79 M/mm3 (3.80-5.20); White Blood Cell Count 11.46 K/mm3 (4.00-11.30)
[2023-05-22 05:56] LABS: Bun/Creatinine Ratio 27.7 (12.0-20.0); Creatinine, Blood 0.61 mg/dL (0.40-1.00); Potassium, Blood 4.6 mmol/L (3.5-5.5)
[2023-05-22 06:44] LABS: BASOPHILS PERCENT MAN 0 % (0-2); EOSINOPHILS PERCENT MAN 0 % (0-6); LYMPHOCYTES ABSOLUTE MAN 0.22 K/mm3 (0.84-5.20); LYMPHOCYTES PERCENT MAN 2 % (21-46); MONOCYTES ABSOLUTE MAN 0.57 K/mm3 (0.16-1.47); MONOCYTES PERCENT MAN 5 % (4-13); NEUTROPHILS ABSOLUTE MAN 10.65 K/mm3 (1.96-9.15); SEG NEUTROPHILS PERCENT MAN 93 % (41-73); TOTAL CELLS COUNTED 100
[2023-05-22 07:16] VITALS: BP 153/66
[2023-05-22 15:29] VITALS: BP 152/50
--- NOTE | 2023-05-22 16:27 | NUR ---
DAYSHIFT SUMMARY Patient alert & oriented x3,reports feeling better today. Continues to be SOB at rest, able to walk short distances, but increased work of breathing, tripoding with activities. Titrated steriods today, stopped IV solumedrol and started prednisone PO. O2 was 3lpm at the start of shift, titrated down to 1.5lpm O2. Vitals stable. Will continue plan of care.
[2023-05-22 19:46] VITALS: BP 146/65
--- NOTE | 2023-05-23 04:18 | NUR ---
END OF SHIFT SUMMARY PT CALM AND COOPERATIVE WITH CARE PROVIDED. A&O x4. PT ENCOURAGED TO AMBULATE TOLERATED. PT ON 2L OF O2 VIA NC. NO C/O CHEST PAIN. PT DENIED SOB. PT STATED THAT SHE DOES FEEL BETTER AFTER RECEIVING A BREATHING TREATMENT. NO S/SX OF RESP DISTRESS, BREATHES ARE EVEN AND UNLABORED. PT SLEPT WELL OVER NIGHT. PT ABLE TO MAKE NEEDS KNOWN. BED IN LOWEST POSITION, CALL LIGHT WITHIN REACH, WCTM.
[2023-05-23 05:37] LABS: BASOPHILS ABSOLUTE AUTO 0.01 K/mm3 (0.00-0.23); BASOPHILS PERCENT AUTO 0 % (0-2); EOSINOPHILS PERCENT AUTO 0 % (0-6); Hematocrit 34.8 % (33.0-51.0); IMMATURE GRAN ABSOLUTE AUTO 0.09 K/mm3 (0.00-0.10); IMMATURE GRAN PERCENT AUTO 1 % (0-1); LYMPHOCYTES ABSOLUTE AUTO 0.82 K/mm3 (0.84-5.20); LYMPHOCYTES PERCENT AUTO 8 % (21-46); MONOCYTES ABSOLUTE AUTO 0.66 K/mm3 (0.16-1.47); MONOCYTES PERCENT AUTO 6 % (4-13); Mean Corpuscular HGB 28.3 pg (26.0-34.0); Mean Corpuscular HGB Conc 31.6 g/dL (31.5-36.5); Mean Corpuscular Volume 90 fL (80-100); NEUTROPHILS PERCENT AUTO 85 % (41-73); Platelet Count 309 K/mm3 (150-400); RDW Coefficient Variation 14.9 % (11.7-14.2); RDW Standard Deviation 48.4 fL (35.1-46.3); Red Blood Cell Count 3.89 M/mm3 (3.80-5.20); White Blood Cell Count 10.78 K/mm3 (4.00-11.30)
[2023-05-23 05:51] VITALS: BP 133/57
[2023-05-23 05:55] LABS: Bun/Creatinine Ratio 36.5 (12.0-20.0); Calcium, Blood 8.8 mg/dL (8.5-10.1); Creatinine, Blood 0.6 mg/dL (0.40-1.00); Potassium, Blood 4.3 mmol/L (3.5-5.5)
[2023-05-23 07:06] VITALS: BP 131/67
[2023-05-23] MEDS ORDERED: PRED20 PO ×2 (10:50→10:51)
--- NOTE | 2023-05-23 11:14 | NUR ---
SPOKE WITH [facility] WHO WAS LOOKING FOR CLARIFICATION ON PREDNISONE ORDER. I GAVE VERBAL ORDER PER DISCHARGE MEDICATION RECS (INCLUDING 2 REVISIONS) THAT ORDER, PREDNISONE SHOULD BE TAPERED OVER 6 DAYS, 40MG FOR 4DAYS AND 20MG FOR 2DAYS.
--- NOTE | 2023-05-23 18:04 | NUR ---
DISCHARGE PT DISCHARGED HOME WITH NEIGHBOR. DISCHARGE INSTRUCTIONS DISCUSSED WITH PT. NO CONCERNS OR QUESTIONS AT THIS TIME. 1L AT REST 4L WITH EXERTION. ALERT AND ORIENTED X4. INDEPENDENT IN THE ROOM.
== END 2023-05-23 17:37 | disposition home or self-care (01) | DRG 189 ==
LOC: ER 19:35 → MEDS 23:50
PROVIDERS: Emergency Medicine; Student in an Organized Health Care Education/Training Program; ADMIT Hospitalist
DX: J96.21 Acute and chronic respiratory failure with hypoxia (principal); I48.20 Chronic atrial fibrillation, unspecified; J44.1 Chronic obstructive pulmonary disease with (acute) exacerbation; I50.22 Chronic systolic (congestive) heart failure; I11.0 Hypertensive heart disease with heart failure; E66.9 Obesity, unspecified; Z79.01 Long term (current) use of anticoagulants; F32.A Depression, unspecified; F41.9 Anxiety disorder, unspecified; D72.829 Elevated white blood cell count, unspecified; Z88.5 Allergy status to narcotic agent; Z88.2 Allergy status to sulfonamides; Z79.51 Long term (current) use of inhaled steroids; Z79.899 Other long term (current) drug therapy; Z90.710 Acquired absence of both cervix and uterus; Z68.38 Body mass index [BMI] 38.0-38.9, adult; Z90.49 Acquired absence of other specified parts of digestive tract; Z99.81 Dependence on supplemental oxygen; Z98.890 Other specified postprocedural states
CPT/HCPCS: 36415; 71046; 71260; 80048; 80053; 85025; 85379; 93005; 93010; 94640; 94644; 94664; 94760; 94761; 96374-59; 99285-25; A9270; J2930; J7512; Q9967

== ENCOUNTER 2023-05-31 19:07 | Emergency (ER) | payer OTHER ==
[~2023-05-31] VITALS: Ht 152.4 cm; Wt 88.9 kg
[~2023-05-31 19:07] MED LIST changes: +ALBU2.5V5 INH
[2023-05-31 19:34] LABS: BASOPHILS ABSOLUTE AUTO 0.04 K/mm3 (0.00-0.23); BASOPHILS PERCENT AUTO 0 % (0-2); EOSINOPHILS ABSOLUTE AUTO 0.18 K/mm3 (0.00-0.68); EOSINOPHILS PERCENT AUTO 1 % (0-6); Hematocrit 37.8 % (33.0-51.0); Hemoglobin 12.5 g/dL (11.5-16.0); IMMATURE GRAN ABSOLUTE AUTO 0.09 K/mm3 (0.00-0.10); IMMATURE GRAN PERCENT AUTO 1 % (0-1); LYMPHOCYTES ABSOLUTE AUTO 0.98 K/mm3 (0.84-5.20); LYMPHOCYTES PERCENT AUTO 6 % (21-46); MONOCYTES ABSOLUTE AUTO 0.99 K/mm3 (0.16-1.47); MONOCYTES PERCENT AUTO 6 % (4-13); Mean Corpuscular HGB 29.3 pg (26.0-34.0); Mean Corpuscular HGB Conc 33.1 g/dL (31.5-36.5); Mean Corpuscular Volume 89 fL (80-100); Mean Platelet Volume 9.8 fL (9.1-12.4); NEUTROPHILS ABSOLUTE AUTO 14.16 K/mm3 (1.96-9.15); NEUTROPHILS PERCENT AUTO 86 % (41-73); Platelet Count 282 K/mm3 (150-400); RDW Coefficient Variation 15.4 % (11.7-14.2); RDW Standard Deviation 50.4 fL (35.1-46.3); Red Blood Cell Count 4.27 M/mm3 (3.80-5.20); White Blood Cell Count 16.44 K/mm3 (4.00-11.30)
[2023-05-31 20:02] LABS: Bilirubin, Total 0.3 mg/dL (0.1-1.0); Bun/Creatinine Ratio 16.8 (12.0-20.0); Calcium, Blood 8.8 mg/dL (8.5-10.1); Creatinine, Blood 0.89 mg/dL (0.40-1.00); Globulin, Blood 3.1 g/dL (2.2-4.0); Total Protein, Blood 6.1 g/dL (6.4-8.2)
[2023-05-31 23:15] VITALS: BP 114/48
[2023-06-01 14:21] LABS: Potassium, Blood 4.2 mmol/L (3.5-5.5)
== END 2023-05-31 23:24 | disposition home or self-care (01) ==
LOC: ER 19:07
PROVIDERS: Emergency Medicine
DX: R07.89 Other chest pain (principal); J98.01 Acute bronchospasm; I11.0 Hypertensive heart disease with heart failure; I50.22 Chronic systolic (congestive) heart failure; J44.9 Chronic obstructive pulmonary disease, unspecified; I48.91 Unspecified atrial fibrillation; F32.A Depression, unspecified; F41.9 Anxiety disorder, unspecified; Z79.01 Long term (current) use of anticoagulants; Z79.899 Other long term (current) drug therapy; Z88.5 Allergy status to narcotic agent; Z88.2 Allergy status to sulfonamides; Z91.048 Other nonmedicinal substance allergy status
CPT/HCPCS: 71045; 80053; 83690; 83880; 84484; 85025; 93005; 93010; 94640; 94664; 99285-25

== ENCOUNTER 2023-07-08 17:06 | Inpatient (IN) | payer OTHER ==
[~2023-07-08] VITALS: Ht 152.4 cm; Wt 88.8 kg
[2023-07-08 18:14] LABS: BASOPHILS ABSOLUTE AUTO 0.06 K/mm3 (0.00-0.23); BASOPHILS PERCENT AUTO 1 % (0-2); EOSINOPHILS ABSOLUTE AUTO 0.29 K/mm3 (0.00-0.68); EOSINOPHILS PERCENT AUTO 2 % (0-6); Hematocrit 38.6 % (33.0-51.0); Hemoglobin 11.9 g/dL (11.5-16.0); IMMATURE GRAN ABSOLUTE AUTO 0.05 K/mm3 (0.00-0.10); IMMATURE GRAN PERCENT AUTO 0 % (0-1); LYMPHOCYTES ABSOLUTE AUTO 0.71 K/mm3 (0.84-5.20); LYMPHOCYTES PERCENT AUTO 6 % (21-46); MONOCYTES ABSOLUTE AUTO 0.55 K/mm3 (0.16-1.47); MONOCYTES PERCENT AUTO 5 % (4-13); Mean Corpuscular HGB 27.9 pg (26.0-34.0); Mean Corpuscular HGB Conc 30.8 g/dL (31.5-36.5); Mean Corpuscular Volume 91 fL (80-100); Mean Platelet Volume 10.1 fL (9.1-12.4); NEUTROPHILS ABSOLUTE AUTO 10.36 K/mm3 (1.96-9.15); NEUTROPHILS PERCENT AUTO 86 % (41-73); Platelet Count 299 K/mm3 (150-400); RDW Standard Deviation 46.5 fL (35.1-46.3); Red Blood Cell Count 4.26 M/mm3 (3.80-5.20); White Blood Cell Count 12.02 K/mm3 (4.00-11.30)
[2023-07-08 18:17] LABS: Albumin, Blood 3.3 g/dL (3.4-5.0); Albumin/Globulin Ratio 0.9 (0.8-1.8); Bilirubin, Total 0.3 mg/dL (0.1-1.0); Bun/Creatinine Ratio 15.6 (12.0-20.0); Creatinine, Blood 0.58 mg/dL (0.40-1.00); Globulin, Blood 3.7 g/dL (2.2-4.0); Potassium, Blood 3.6 mmol/L (3.5-5.5)
[2023-07-09 01:48] VITALS: BP 173/73
[2023-07-09 02:44] VITALS: BP 145/62
[2023-07-09 05:27] LABS: BASOPHILS PERCENT AUTO 0 % (0-2); EOSINOPHILS PERCENT AUTO 0 % (0-6); Hematocrit 38.5 % (33.0-51.0); Hemoglobin 12.1 g/dL (11.5-16.0); IMMATURE GRAN ABSOLUTE AUTO 0.01 K/mm3 (0.00-0.10); IMMATURE GRAN PERCENT AUTO 0 % (0-1); LYMPHOCYTES ABSOLUTE AUTO 0.24 K/mm3 (0.84-5.20); LYMPHOCYTES PERCENT AUTO 5 % (21-46); MONOCYTES ABSOLUTE AUTO 0.06 K/mm3 (0.16-1.47); MONOCYTES PERCENT AUTO 1 % (4-13); Mean Corpuscular HGB 27.9 pg (26.0-34.0); Mean Corpuscular HGB Conc 31.4 g/dL (31.5-36.5); Mean Corpuscular Volume 89 fL (80-100); Mean Platelet Volume 10.2 fL (9.1-12.4); NEUTROPHILS ABSOLUTE AUTO 4.16 K/mm3 (1.96-9.15); NEUTROPHILS PERCENT AUTO 93 % (41-73); Platelet Count 269 K/mm3 (150-400); RDW Coefficient Variation 13.7 % (11.7-14.2); RDW Standard Deviation 44.5 fL (35.1-46.3); Red Blood Cell Count 4.33 M/mm3 (3.80-5.20); White Blood Cell Count 4.47 K/mm3 (4.00-11.30)
[2023-07-09 06:01] LABS: Albumin, Blood 3.1 g/dL (3.4-5.0); Albumin/Globulin Ratio 0.9 (0.8-1.8); Bilirubin, Total 0.3 mg/dL (0.1-1.0); Bun/Creatinine Ratio 18.4 (12.0-20.0); Calcium, Blood 9.3 mg/dL (8.5-10.1); Creatinine, Blood 0.54 mg/dL (0.40-1.00); Globulin, Blood 3.5 g/dL (2.2-4.0); Potassium, Blood 4.4 mmol/L (3.5-5.5); Total Protein, Blood 6.6 g/dL (6.4-8.2)
[2023-07-09 07:16] VITALS: BP 172/71
[2023-07-09 09:07] VITALS: BP 127/71
[2023-07-09 15:48] VITALS: BP 127/58
--- NOTE | 2023-07-09 19:50 | NUR ---
SHIFT SUMMARY PATIENT WITH SHORTNESS OF BREATH BASELINE, DESATURATED WITH MIN EXERTION, IMPROVIING WITH DAY. PATIENT ABLE TO GET UP TO BEDSIDE COMMODE SBA AT 1400 WITH NO DESATURATING EVENTS. LUNGS IMPROVING. RT TURNED DOWNT O2 TO 3LPM AT 1800, PATIENT TOLERATING WELL AT THIS TIME. BED IN LOW POSITION, CALL LIGHT IN REACH. PATIENT CALLS APPROPRIATELY.
[2023-07-09 20:10] VITALS: BP 138/63
[2023-07-10 04:59] VITALS: BP 125/50
--- NOTE | 2023-07-10 05:16 | NUR ---
SHIFT SUMMARY; NO ACUTE CHANGES OVERNIGHT. THE PT IS AXO X4 AND INDEPENDENT TO THE BSC. THE PT IS ON 3-4L NC SATTING 94-96%. THE PT HAS BEEN SLEEPING THE ENTIRETY OF THE NIGHT. THE PT DENIES ANY PAIN, CHEST PAIN/PRESSURE, SOB OR N/V. CURRENTLY THE PT IS SLEEPING IN BED WITH THE BED IN THE LOWEST POSITION AND THE CALL LIGHT AT BEDSIDE. FIRE SAFETY MAINTAINED T/O THE NIGHT.
[2023-07-10 08:32] VITALS: BP 116/76
[2023-07-10] MEDS ORDERED: ACET325 PO (10:55)
[2023-07-10] MEDS ORDERED: MELADOX3 M1 PO (10:59)
[2023-07-10] MEDS ORDERED: GUAIASORB DM 2118 ML PO (10:59)
--- NOTE | 2023-07-10 12:17 | NUR ---
SHIFT/DISCHARGE SUMMARY Pt remains A&O x3 this shift. Denies pain. VSS. Ambulating to BSC independently with nasal cannula at baseline. Tolerating diet, voiding without difficulty. Home oxygen delivered to bedside from friend, however he's unable to drive her home. Pt called taxi and has been dispatched. All discharge instructions reviewed with return verbal understanding. Pt to lobby via wc and BEVEL POLISHER. Per pharmacy, to dispose of all inhalers in biohazard bag.
== END 2023-07-10 12:14 | disposition home or self-care (01) | DRG 177 ==
LOC: ER 17:06 → MEDS 17:07
PROVIDERS: Student in an Organized Health Care Education/Training Program; ADMIT Student in an Organized Health Care Education/Training Program
PROC: XW033E5 Introduction of Remdesivir Anti-infective into Peripheral Vein, Percutaneous Approach, New Technology Group 5 (ICD-10-PCS; principal; 2023-07-09)
PROC: 3E0DX3Z Introduction of Anti-inflammatory into Mouth and Pharynx, External Approach (ICD-10-PCS; 2023-07-09)
PROC: 8E0ZXY6 Isolation (ICD-10-PCS; 2023-07-09)
DX: U07.1 COVID-19 (principal); J96.21 Acute and chronic respiratory failure with hypoxia; I50.22 Chronic systolic (congestive) heart failure; J44.1 Chronic obstructive pulmonary disease with (acute) exacerbation; I48.0 Paroxysmal atrial fibrillation; D86.9 Sarcoidosis, unspecified; F41.9 Anxiety disorder, unspecified; I11.0 Hypertensive heart disease with heart failure; F32.A Depression, unspecified; Z79.01 Long term (current) use of anticoagulants; Z90.49 Acquired absence of other specified parts of digestive tract; Z98.890 Other specified postprocedural states; Z90.710 Acquired absence of both cervix and uterus; Z88.5 Allergy status to narcotic agent; Z88.2 Allergy status to sulfonamides; Z91.048 Other nonmedicinal substance allergy status; Z79.51 Long term (current) use of inhaled steroids; Z87.891 Personal history of nicotine dependence
CPT/HCPCS: 36415; 71045; 80053; 83735; 83880; 84484; 85025; 93005; 93010; 94640; 94644; 94664; 94762; 99285-25; A9270; G0378; J0248; J7050

== ENCOUNTER 2023-09-13 06:17 | Inpatient (IN) | payer OTHER ==
[~2023-09-13] VITALS: Ht 152.4 cm; Wt 93.1 kg
[~2023-09-13 06:17] MED LIST changes: +ACET325 PO; +GUAIASORB DM 2118 ML PO; +MELADOX3 M1 PO
[2023-09-13 06:43] LABS: BASOPHILS ABSOLUTE AUTO 0.04 K/mm3 (0.00-0.23); BASOPHILS PERCENT AUTO 0 % (0-2); Base Excess Venous 3.7 mmol/L; Bicarbonate Venous 25.5 mmol/L (24.0-30.0); EOSINOPHILS ABSOLUTE AUTO 0.12 K/mm3 (0.00-0.68); EOSINOPHILS PERCENT AUTO 1 % (0-6); Hematocrit 38.2 % (33.0-51.0); Hemoglobin 11.9 g/dL (11.5-16.0); IMMATURE GRAN ABSOLUTE AUTO 0.11 K/mm3 (0.00-0.10); IMMATURE GRAN PERCENT AUTO 1 % (0-1); LYMPHOCYTES ABSOLUTE AUTO 0.77 K/mm3 (0.84-5.20); LYMPHOCYTES PERCENT AUTO 5 % (21-46); MONOCYTES ABSOLUTE AUTO 0.47 K/mm3 (0.16-1.47); MONOCYTES PERCENT AUTO 3 % (4-13); Mean Corpuscular HGB 28.3 pg (26.0-34.0); Mean Corpuscular HGB Conc 31.2 g/dL (31.5-36.5); Mean Corpuscular Volume 91 fL (80-100); Mean Platelet Volume 10.2 fL (9.1-12.4); NEUTROPHILS PERCENT AUTO 90 % (41-73); PCO2 Venous 69.3 mmHg (38-42); Platelet Count 331 K/mm3 (150-400); RDW Coefficient Variation 14.6 % (11.7-14.2); RDW Standard Deviation 48.6 fL (35.1-46.3); White Blood Cell Count 14.61 K/mm3 (4.00-11.30)
[2023-09-13 06:46] LABS: pH Blood Venous 7.26 (7.34-7.37)
[2023-09-13 07:07] LABS: Albumin, Blood 3.1 g/dL (3.4-5.0); Albumin/Globulin Ratio 0.8 (0.8-1.8); Bilirubin, Total 0.4 mg/dL (0.1-1.0); Bun/Creatinine Ratio 26.4 (12.0-20.0); Creatinine, Blood 0.65 mg/dL (0.40-1.00); Globulin, Blood 3.9 g/dL (2.2-4.0); Potassium, Blood 4.6 mmol/L (3.5-5.5)
[2023-09-13 07:44] LABS: Adenovirus Not Detected (NOT DETECT); Coronavirus 229E Not Detected (NOT DETECT); Coronavirus HKU1 Not Detected (NOT DETECT); Coronavirus NL63 Not Detected (NOT DETECT); Coronavirus OC43 Not Detected (NOT DETECT); Human Metapneumovirus Not Detected (NOT DETECT); Human Rhinovirus/Enterovirus Not Detected (NOT DETECT); Influenza A/H1 Not Detected (NOT DETECT); Influenza A/H3 Not Detected (NOT DETECT); SARS-Cov-2 (COVID-19), BioFire Not Detected (NOT DETECT)
[2023-09-13 07:45] LABS: Bordetella pertussis Not Detected (NOT DETECT); Chlamydophila pneumoniae Not Detected (NOT DETECT); Influenza A/2009-H1 Detected (NOT DETECT); Influenza B Not Detected (NOT DETECT); Mycoplasma pneumoniae Not Detected (NOT DETECT); Parainfluenza Virus 1 Not Detected (NOT DETECT); Parainfluenza Virus 2 Not Detected (NOT DETECT); Parainfluenza Virus 3 Not Detected (NOT DETECT); Parainfluenza Virus 4 Not Detected (NOT DETECT); Respiratory Syncytial Virus Not Detected (NOT DETECT)
[2023-09-13 11:11] LABS: International Normalized Ratio 0.98; Prothrombin Time Results 10.3 Sec (9.7-11.5)
[2023-09-13] MEDS ORDERED: SERT100 PO (11:57)
[2023-09-13] MEDS ORDERED: LISI5 PO (11:57)
[2023-09-13 12:11] VITALS: BP 122/55
[2023-09-13 17:01] VITALS: BP 139/69
--- NOTE | 2023-09-13 18:15 | NUR ---
SHIFT SUMMARY PATIENT REMAINS ON BIPAP 15/5 FIO2 30% WITH SPO2 98-100% RR MID TO HIGH 20'S. STAND AND PIVOTS TO BEDSIDE COMMODE WITH SBA. TOLERATES BIPAP BREAKS WELL FOR PO FLUIDS AND MED ADMINISTRATION. PATIENT WAS UP TO BSC MULTIPLE TIMES WITH 2BM THIS SHIFT. DENIES NAUSEA AND PAIN. LR STARTED @ 125 ML/HR, HEPARIN GTT @ 15 UNITS/KG/HR @ 65KG CORRECTED. ECHO COMPLETED THIS SHIFT PENDING REPORT. TROPNINS STILL TRENDING UP. MONITOR SHOWS AFIB WITH LBBB RATE 70. ALL OTHER VSS STABLE. DAUGHTER JESSIE AT BEDSIDE. NO OTHER CHANGES THIS SHIFT.
[2023-09-13 19:41] VITALS: BP 152/84
[2023-09-13 20:00] VITALS: BP 153/82
[2023-09-13 20:07] LABS: Bicarbonate Venous 22.7 mmol/L (24.0-30.0); PCO2 Venous 55.4 mmHg (38-42)
[2023-09-13 20:09] LABS: pH Blood Venous 7.28 (7.34-7.37)
[2023-09-13 20:44] VITALS: BP 153/82
[2023-09-13 23:11] VITALS: BP 139/71
--- NOTE | 2023-09-14 02:48 | NUR ---
TRANSFER TO PCU RECIEVED REPORT FROM CLEANER SIGNS BELEN DICK ~2230 WITH ALL QUESTIONS ANSWERED. PT SHORTLY TRANSFFERED TO PCU 10. REVIEWED PREVIOUS RN'S SHIFT ASSESSMENT AND IM IN AGREEMENT WITH HIS FINDINGS. LIZETT ROSSI UPON ARRIVAL TO PCU
[2023-09-14 04:16] VITALS: BP 129/74
[2023-09-14 04:43] LABS: Base Excess Venous 3.2 mmol/L; Bicarbonate Venous 26.4 mmol/L (24.0-30.0); PCO2 Venous 45.6 mmHg (38-42)
[2023-09-14 04:47] LABS: BASOPHILS PERCENT AUTO 0 % (0-2); EOSINOPHILS PERCENT AUTO 0 % (0-6); Hematocrit 36.9 % (33.0-51.0); Hemoglobin 11.7 g/dL (11.5-16.0); IMMATURE GRAN ABSOLUTE AUTO 0.04 K/mm3 (0.00-0.10); IMMATURE GRAN PERCENT AUTO 0 % (0-1); LYMPHOCYTES PERCENT AUTO 2 % (21-46); MONOCYTES ABSOLUTE AUTO 0.24 K/mm3 (0.16-1.47); MONOCYTES PERCENT AUTO 3 % (4-13); Mean Corpuscular HGB 27.7 pg (26.0-34.0); Mean Corpuscular HGB Conc 31.7 g/dL (31.5-36.5); Mean Corpuscular Volume 87 fL (80-100); Mean Platelet Volume 9.6 fL (9.1-12.4); NEUTROPHILS PERCENT AUTO 95 % (41-73); Platelet Count 277 K/mm3 (150-400); RDW Coefficient Variation 14.4 % (11.7-14.2); RDW Standard Deviation 46.3 fL (35.1-46.3); Red Blood Cell Count 4.23 M/mm3 (3.80-5.20); White Blood Cell Count 9.18 K/mm3 (4.00-11.30)
--- NOTE | 2023-09-14 05:24 | NUR ---
SHIFT SUMMARY A/Ox4 AND COOPERATIVE WITH CARE. ANSWERS QUESTIONS APPROPRIATELY AND ABLE TO MAKE HER NEEDS KNOWN. CAN HAVE EPISODES OF HIGH ANXIETY WHERE PT IMPULSIVE SITS AT SIDE OF THE BED OR WILL REQUEST BEDSIDE TABLE TO TRIPOD. DURING THESES EVENTS, BUT CLAIMS SHE IS NOT BREATHING WELL, BUT SPO2 REMAINS >90%. CARDIAC, REMAINS PACED WITH A RATE AVERAGING 70'S WITH NO REPORTS OF CP OR PRESSURE DURING THE NIGHT. SBP HAS BEEN STABLE RANGING 130-150'S. RESPIRATORY, MAINTAINS SPO2 88-94% ON BIPAP 18/5 W/ 25% FiO2. CAN TAKE VERY SHORT BREAKS TO HAVE SIP TO HAVE SIPS OF PEPSI OR FOR PO MED ADMINISTRATION. LS CONTINUE TO BE VERY WHEEZY/TIGHT T/O. SIGNIFICANT INCREASE IN WORK OF BREATHING NOTED WITH MINIMAL EXERTION. PRODUCTIVE COUGH NOTED WITH THICK/FROTHY, WHITE SPUTUM. PT ABLE TO SELF SUCTION TO REMOVE SECRETIONS WHEN MASK IS OFF. GI/, ABLE TO AMBULATE TO BS TO VOID MAYA COLORED URINE, BUT AGAIN BECOMES VERY TIRED DURING THE ACT. REQUESTED A PUREWICK TO BE PLACED DURING THE NIGHT FOR ANY ACCIDENTS. NO BM DURING THIS SHIFT. ASSESSED PT FOR RISKS OF ANY IGNITION SOURCES WELL BEHAVIORS FOR INCREASED RISKS OF FIRE DANGER. PT EDUCATED ON COMMON SOURCES OF IGNITION WELL NEED TO KEEP A SAFE ENVIRONMENT. PT VOICED UNDERSTANDING. NO NEW ORDERS AT THIS TIME, WILL REPORT TO ONCOMING RN. LIZETT ROSSI OF THIS NOTE
[2023-09-14 05:28] LABS: Albumin, Blood 3.2 g/dL (3.4-5.0); Albumin/Globulin Ratio 0.8 (0.8-1.8); Bilirubin, Total 0.3 mg/dL (0.1-1.0); Bun/Creatinine Ratio 34.2 (12.0-20.0); Calcium, Blood 9.4 mg/dL (8.5-10.1); Creatinine, Blood 0.5 mg/dL (0.40-1.00); Globulin, Blood 3.9 g/dL (2.2-4.0); Magnesium, Blood 2.3 mg/dL (1.6-2.4); Potassium, Blood 4.6 mmol/L (3.5-5.5); Total Protein, Blood 7.1 g/dL (6.4-8.2)
--- NOTE | 2023-09-14 06:38 | NUR ---
UPDATE PER PT'S REQUEST, CALLED UPDATE ABOUT PT'S STATUS TO PT'S DAUGHTER JESSIE WELL INFORMATION REGARDING TRANSFER TO PCU. ALL QUESTIONS ANSWERED. DAUGHTER STATED SHE WOULD BE IN TO SEE PT THIS MORNING
[2023-09-14 08:12] VITALS: BP 149/86
[2023-09-14 11:49] VITALS: BP 121/66
[2023-09-14 16:33] VITALS: BP 134/75
--- NOTE | 2023-09-14 17:11 | NUR ---
SHIFT SUMMARY PT IS A&OX4, 1P SBA W/ FWW, AND PACED 70'S ON TELE. SHE HAS BEEN 18/5 @ 25% OR ON 3-5L NC, SP02 >90% SHE CAN GET SLIGHTLY SOB W/ ACTIVITY. SHE HAS BEEN TOLERATING THE NC FOR LONGER PERIODS OF TIME THIS AFTERNOON. SHE IS A MOUTH BREATHER SO SHE OFTEN WILL PUT THE NASAL CANNULA IN HER MOUTH. SHE HAS BEEN UP IN THE CHAIR MOST OF THE DAY AND HAD A BEDBATH. SHE HAS A PURWICK SET UP DRAINING TO SUCTION AND HAS HAD TWO LARGE SOFT BOWEL MOVEMENTS THIS SHIFT. THE PT HAS BEEN VERY COOPERATIVE AND APPROPRITE W/ CARE. NO ACUTE EVENTS THIS SHIFT. FIRE IGNITION RISK HAS BEEN ASSESSED.
[2023-09-14 19:09] LABS: Source, Urine Foley catheter
[2023-09-14 19:14] LABS: Appearance, Urine Clear (Clear); Bilirubin, Urine Neg (Neg); Blood, Urine Neg (Neg); Color, Urine Yellow (P-Yellow); Glucose Qualitative, Urine Neg (Neg); Ketones, Urine Neg (Neg); Leukocyte Esterase, Urine Neg (Neg); Nitrite, Urine Pos (Neg); Protein, Urine Neg (Neg); Urobilinogen, Urine NORM (Normal)
[2023-09-14 19:45] LABS: Bacteria Many /hpf; Red Blood Cells, Urine 0-2 /hpf (0-2); Squamous Epithelial Cells Rare /hpf (Few); White Blood Cells, Urine 0-2 /hpf (0-5)
[2023-09-14 21:20] VITALS: BP 138/63
[2023-09-14 23:14] VITALS: BP 145/75
[2023-09-15] VITALS (7 sets, daily range): BP systolic 120–148; BP diastolic 66–94
--- NOTE | 2023-09-15 01:39 | NUR ---
UPDATE ~1255 THIS AM, THIS RN ALERTED BY PT THAT SHE WAS EXPERIENCING 8.5/10 CENTRAL CHEST PAIN THAT RADIATED TO HER JAW, BACK, AND LEFT SHOULDER. PT DESCRIBED THE PAIN A VERY SHARP PAIN THAT WOKE HER FROM HER SLEEP. THIS RN PERFORMED A SET OF VS WELL AN EKG. DR. RIVERA NOTIFIED OF THESE EVENTS. NEW ORDERS GIVEN FOR STAT TROPONIN AND MD CAME TO BEDSIDE TO ASSESS PATIENT. MD TO BE INFORMED OF TROPONIN RESULTS. NO FURTHER ORDERS AT THIS TIME.
--- NOTE | 2023-09-15 05:14 | NUR ---
SHIFT SUMMARY A/Ox4 AND COOPERATIVE WITH CARE. ANSWERS QUESTIONS APPROPRIATELY AND ABLE TO MAKE HER NEEDS KNOWN. CARDIAC, REMAINS PACED WITH A RATE AVERAGING 70'S WITH SBP BEING STABLE RANGING 130-140'S. DID HAVE AN EPISODE OF CP ~1255 THIS AM, MADE AWARE. SEE UPDATE NOTE FOR MORE DETAILS. RESPIRATORY, MAINTAINS SPO2 88-94% ON BIPAP 18/5 W/ 25% FiO2. CAN TAKE SHORT BREAKS TO HAVE SIPS OF WATER OR FOR PO MED ADMINISTRATION. CONTINUES TO IMPROVE WITH DECREASED WORK OF BREATHING NOTED WITH EXERTION COMPARED TO LAST NOC SHIFT. CONTINUES TO HAVE PRODUCTIVE COUGH NOTED WITH THICK/FROTHY, WHITE SPUTUM NOTED. PT ABLE TO SELF SUCTION TO REMOVE SECRETIONS. GI/, CALVILLO CATH PLACED ON DAYSHIFT 09/13/23 FOR ACUTE RETENTION PER REPORT. CONTINUES TO BE PATENT AND DRAINING TEA COLORED URINE TO GRAVITY NO BM DURING THIS SHIFT. ASSESSED PT FOR RISKS OF ANY IGNITION SOURCES WELL BEHAVIORS FOR INCREASED RISKS OF FIRE DANGER. PT EDUCATED ON COMMON SOURCES OF IGNITION WELL NEED TO KEEP A SAFE ENVIRONMENT. PT VOICED UNDERSTANDING. NO NEW ORDERS AT THIS TIME, WILL REPORT TO ONCOMING RN. LIZETT ROSSI OF THIS NOTE
[2023-09-15 06:10] LABS: BASOPHILS ABSOLUTE AUTO 0.01 K/mm3 (0.00-0.23); BASOPHILS PERCENT AUTO 0 % (0-2); EOSINOPHILS PERCENT AUTO 0 % (0-6); Hematocrit 36.8 % (33.0-51.0); Hemoglobin 11.5 g/dL (11.5-16.0); IMMATURE GRAN ABSOLUTE AUTO 0.04 K/mm3 (0.00-0.10); IMMATURE GRAN PERCENT AUTO 0 % (0-1); LYMPHOCYTES PERCENT AUTO 2 % (21-46); MONOCYTES PERCENT AUTO 4 % (4-13); Mean Corpuscular HGB 27.6 pg (26.0-34.0); Mean Corpuscular HGB Conc 31.3 g/dL (31.5-36.5); Mean Corpuscular Volume 89 fL (80-100); NEUTROPHILS ABSOLUTE AUTO 9.41 K/mm3 (1.96-9.15); NEUTROPHILS PERCENT AUTO 94 % (41-73); Platelet Count 266 K/mm3 (150-400); RDW Coefficient Variation 14.5 % (11.7-14.2); RDW Standard Deviation 46.8 fL (35.1-46.3); Red Blood Cell Count 4.16 M/mm3 (3.80-5.20); White Blood Cell Count 10.06 K/mm3 (4.00-11.30)
[2023-09-15 06:22] LABS: Albumin/Globulin Ratio 0.9 (0.8-1.8); Bilirubin, Total 0.2 mg/dL (0.1-1.0); Bun/Creatinine Ratio 46.3 (12.0-20.0); Calcium, Blood 9.2 mg/dL (8.5-10.1); Creatinine, Blood 0.63 mg/dL (0.40-1.00); Globulin, Blood 3.5 g/dL (2.2-4.0); Potassium, Blood 4.7 mmol/L (3.5-5.5); Total Protein, Blood 6.5 g/dL (6.4-8.2)
--- NOTE | 2023-09-15 17:10 | NUR ---
SHIFT SUMMARY PT IS A&oX4, 1P SBA, SHE HAS BEEN ON THE BIPAP OR 5L NC NC W/ SP02 >93%. SHE HAS BEEN ON THE NC MOST OF THE DAY. ON TELE SHE HAS BEEN V PACED IN THE 70'S W/O ANY SIGNS OF ANGINA OR CHEST PRESSURE. SHE WAS MADE PCU STATUS W/O TELE TODAY. WE HAVE HAD NO ACUTE EVENTS. SEE NOTES FOR ANY UPDATES. FIRE IGNITION RISK HAS BEEN ASSESSED. EDUCATION WAS PROVIDED.
[2023-09-16 03:45] VITALS: BP 139/81
--- NOTE | 2023-09-16 04:58 | NUR ---
END OF SHIFT NOTE: PT REMAINS ALERT, ORIENTED X4. ABLE TO CALL APPROPRIATELY AND COMMUNICATE NEEDS W/ STAFF. HR 60-70'S, NO TELEMETRY PER ORDERS. SBP 120-130'S, PT DENIES CHEST PAIN/PRESSURE. SPO2 >92% ON 3L VIA NC WHILE AWAKE, BIPAP 18/5 & 25% FIO2. PT ABLE TO SIT UP & REPOSITION SELF INDEPENDENTLY NEEDED. PT HAS TOLERATED PO INTAKE WELL. CALVILLO CATH IN PLACE DRAINING YELLOW URINE TO GRAVITY, NO BM'S OVERNIGHT. NO OTHER NEEDS AT THIS TIME. PT IS RESTING IN BED W/ CALL LIGHT IN REACH. WILL REPORT TO ONCOMING RN.
[2023-09-16 05:32] LABS: BASOPHILS PERCENT AUTO 0 % (0-2); EOSINOPHILS PERCENT AUTO 0 % (0-6); Hemoglobin 11.1 g/dL (11.5-16.0); IMMATURE GRAN ABSOLUTE AUTO 0.05 K/mm3 (0.00-0.10); IMMATURE GRAN PERCENT AUTO 1 % (0-1); LYMPHOCYTES PERCENT AUTO 3 % (21-46); MONOCYTES ABSOLUTE AUTO 0.24 K/mm3 (0.16-1.47); MONOCYTES PERCENT AUTO 4 % (4-13); Mean Corpuscular HGB 27.5 pg (26.0-34.0); Mean Corpuscular HGB Conc 31.7 g/dL (31.5-36.5); Mean Corpuscular Volume 87 fL (80-100); Mean Platelet Volume 10.1 fL (9.1-12.4); NEUTROPHILS PERCENT AUTO 92 % (41-73); Platelet Count 270 K/mm3 (150-400); RDW Coefficient Variation 14.5 % (11.7-14.2); RDW Standard Deviation 46.6 fL (35.1-46.3); Red Blood Cell Count 4.03 M/mm3 (3.80-5.20); White Blood Cell Count 5.99 K/mm3 (4.00-11.30)
[2023-09-16 05:48] LABS: Albumin, Blood 2.6 g/dL (3.4-5.0); Albumin/Globulin Ratio 0.8 (0.8-1.8); Bilirubin, Total 0.2 mg/dL (0.1-1.0); Bun/Creatinine Ratio 45.1 (12.0-20.0); Calcium, Blood 8.6 mg/dL (8.5-10.1); Creatinine, Blood 0.69 mg/dL (0.40-1.00); Globulin, Blood 3.2 g/dL (2.2-4.0); Potassium, Blood 4.9 mmol/L (3.5-5.5); Total Protein, Blood 5.8 g/dL (6.4-8.2)
[2023-09-16 08:08] VITALS: BP 155/86
[2023-09-16 12:06] VITALS: BP 121/78
--- NOTE | 2023-09-16 13:23 | NUR ---
MORNING SUMMARY PT IS A&OX4, SBA IN THE ROOM FOR LINE MANAGMENT, AND SHE HAS BEEN ON 2-3L NC W/ SP02 >88%. DR. LLOYD AND DR. WINSTON DANIELS WANT THE PT'S SP02 88%-92%, SHE WEARS 3L NC AT BASELINE. SHE HAS DENIED ANY WORSEING SOB TODAY. SHE IS PCU W/O TELE AND HAS DENIED ANY ANGINA OR CHEST PRESSURE. WE HAVE HAD NO ACUTE EVENTS THIS SHIFT. SEE NOTES FOR ANY UPDATES. FIRE IGNTITION RISK HAS BEEN ASSESSED.
--- NOTE | 2023-09-16 16:22 | NUR ---
1430 Report from CLARY Palmer. Assumed care of the pt. She is sleeping.
[2023-09-16 16:45] VITALS: BP 143/82
[2023-09-16 19:45] VITALS: BP 134/72
--- NOTE | 2023-09-16 22:32 | NUR ---
ASSUMPTION OF CARE: THIS RN ASSUMED CARE OF PT AT APPROX 1900. PT IS ALERT/ORIENTED X4, LAYING DOWN IN BED W/ BIPAP MASK ON. STATES SHE FELT SOB PRIOR TO SHIFT CHANGE AND THAT THE MASK HAS SINCE RELIEVED THIS. TRANSITIONED BACK TO 2L NC PER PT REQUEST. HR 69, NO TELE PER ORDERS. BP STABLE, MAP >65. DENIES CHEST PAIN/PRESSURE. SPO2 >95% ON BIPAP 18/5 & FIO2 25%. AFEBRILE. CALVILLO CATH REMAINS PATENT, DRAINING YELLOW URINE TO GRAVITY. NO OTHER NEEDS AT THIS TIME. CALL LIGHT WITHIN REACH, BED IN LOWEST POSITION.
[2023-09-17 00:02] VITALS: BP 132/65
[2023-09-17 03:57] VITALS: BP 121/77
[2023-09-17 04:14] LABS: BASOPHILS PERCENT AUTO 0 % (0-2); EOSINOPHILS PERCENT AUTO 0 % (0-6); Hematocrit 36.4 % (33.0-51.0); Hemoglobin 11.6 g/dL (11.5-16.0); IMMATURE GRAN ABSOLUTE AUTO 0.05 K/mm3 (0.00-0.10); IMMATURE GRAN PERCENT AUTO 1 % (0-1); LYMPHOCYTES ABSOLUTE AUTO 0.25 K/mm3 (0.84-5.20); LYMPHOCYTES PERCENT AUTO 4 % (21-46); MONOCYTES ABSOLUTE AUTO 0.18 K/mm3 (0.16-1.47); MONOCYTES PERCENT AUTO 3 % (4-13); Mean Corpuscular HGB 27.4 pg (26.0-34.0); Mean Corpuscular HGB Conc 31.9 g/dL (31.5-36.5); Mean Corpuscular Volume 86 fL (80-100); Mean Platelet Volume 9.8 fL (9.1-12.4); NEUTROPHILS ABSOLUTE AUTO 6.56 K/mm3 (1.96-9.15); NEUTROPHILS PERCENT AUTO 93 % (41-73); Platelet Count 273 K/mm3 (150-400); RDW Coefficient Variation 14.5 % (11.7-14.2); RDW Standard Deviation 45.8 fL (35.1-46.3); Red Blood Cell Count 4.23 M/mm3 (3.80-5.20); White Blood Cell Count 7.04 K/mm3 (4.00-11.30)
[2023-09-17 04:46] LABS: Albumin, Blood 2.7 g/dL (3.4-5.0); Albumin/Globulin Ratio 0.9 (0.8-1.8); Bilirubin, Total 0.2 mg/dL (0.1-1.0); Bun/Creatinine Ratio 51.3 (12.0-20.0); Calcium, Blood 8.5 mg/dL (8.5-10.1); Creatinine, Blood 0.55 mg/dL (0.40-1.00); Globulin, Blood 3.1 g/dL (2.2-4.0); Potassium, Blood 4.6 mmol/L (3.5-5.5); Total Protein, Blood 5.8 g/dL (6.4-8.2)
--- NOTE | 2023-09-17 05:21 | NUR ---
END OF SHIFT NOTE: PT REMAINS ALERT, ORIENTED X4. ABLE TO CALL APPROPRIATELY AND COMMUNICATE NEEDS W/ STAFF. HR 60-70'S, NO TELEMETRY PER ORDERS. SBP 120-130'S, DENIES CHEST PAIN/PRESSURE. SPO2 >95% ON 2L VIA NC WHILE AWAKE, BIPAP 18/5 & 25% FIO2. PT ABLE TO SIT UP & REPOSITION SELF INDEPENDENTLY. PT HAS TOLERATED PO INTAKE WELL. CALVILLO CATH IN PLACE DRAINING YELLOW URINE TO GRAVITY, NO BM'S OVERNIGHT. NO OTHER NEEDS AT THIS TIME. PT IS RESTING IN BED W/ CALL LIGHT IN REACH. WILL REPORT TO ONCOMING RN.
[2023-09-17 08:13] VITALS: BP 146/86
[2023-09-17 14:38] VITALS: BP 121/61
--- NOTE | 2023-09-17 16:54 | NUR ---
SHIFT SUMMARY PT REMAINS ALERT AND ORIENTED. BP STABLE. O2 SATS HAVE REMAINED ABOVE 90% ON 2L NC. PT HAS NOT USED BIPAP THIS SHIFT. PT ABLE TO STAND AND TRANSFER TO BSC NEEDED TO VOID. PT DENIES ANY PAIN. WILL CONTINUE TO MONITOR AND REPORT TO ONCOMING RN
[2023-09-17 19:52] VITALS: BP 138/78
[2023-09-18 04:16] VITALS: BP 144/90
[2023-09-18 04:52] LABS: Bun/Creatinine Ratio 49.1 (12.0-20.0); Calcium, Blood 8.6 mg/dL (8.5-10.1); Creatinine, Blood 0.61 mg/dL (0.40-1.00); Potassium, Blood 4.7 mmol/L (3.5-5.5)
--- NOTE | 2023-09-18 05:30 | NUR ---
END OF SHIFT NOTE: PT REMAINS ALERT, ORIENTED X4. ABLE TO CALL APPROPRIATELY AND COMMUNICATE NEEDS W/ STAFF. HR 70, NO TELEMETRY PER ORDERS. SBP 130-140'S, DENIES CHEST PAIN/PRESSURE. SPO2 >95% ON 2L VIA NC FOR ENTIRE SHIFT. PT ABLE TO SIT UP & REPOSITION SELF INDEPENDENTLY. PT HAS TOLERATED PO INTAKE WELL. UP TO BSC TO VOID, HAS BEEN ABLE TO VOID POST-CALVILLO CATH REMOVAL. 1 BM THIS SHIFT. NO OTHER NEEDS AT THIS TIME. PT IS RESTING IN BED W/ CALL LIGHT IN REACH. WILL REPORT TO ONCOMING RN.
[2023-09-18 08:35] VITALS: BP 115/89
[2023-09-18 15:46] VITALS: BP 140/66
--- NOTE | 2023-09-18 17:29 | NUR ---
SHIFT SUMMARY PT REMAINS ALERT AND ORIENTED. BP STABLE. O2 SATS HAVE REMAINED ABOVE 90% ON 2L NC. PT HAS BEEN OFF OF BIPAP ALL SHIFT. PT DENIES ANY PAIN. PT STATES FEELING TIRED THIS SHIFT. PT UP TO COMMODE NEEDED WITH SBA TO VOID. ATTEMPTED TO REQUEST RECORDS OF STRESS TEST AND ECHO FROM [facility] REQUESTED BY DR. MCCRARY. NURSING ENGINE PILOT FROM [facility] STATED THAT THE TESTS WERE DONE OUTPATIENT AND WOULD HAVE TO WAIT UNTIL TUESDAY TO GET RECORDS. WILL CONTINUE TO MONITOR AND REPORT TO ONCOMING RN
[2023-09-18 19:52] VITALS: BP 139/73
--- NOTE | 2023-09-18 20:39 | NUR ---
ASSUMPTION OF CARE AFTER RECEIVING REPORT FROM GALILEA MEANS, THIS RN ASSUMED CARE AT APPROX 1915. PATIENT ALERT AND ORIENTED X4, WATCHING TV IN BED. ABLE TO COMMUNICATE NEEDS EFFECTIVELY. IS MEDICAL STATUS WITHOUT TELEMETRY. BP STABLE, MAP >65. DENIES CHEST PAIN OR PRESSURE. IS CURRENTLY ON 2L VIA NASAL CANNULA, SATS >90%. BASELINE USE 2-3L VIA NASAL CANNULA. DENIES SHORTNESS OF BREATH AT REST. IS A STAND BY ASSIST TO BEDSIDE COMMODE FOR CORD, DEVICE MANAGEMENT. CALL LIGHT IN REACH.
[2023-09-19 03:03] VITALS: BP 148/93
[2023-09-19 03:23] LABS: BASOPHILS ABSOLUTE AUTO 0.02 K/mm3 (0.00-0.23); BASOPHILS PERCENT AUTO 0 % (0-2); EOSINOPHILS PERCENT AUTO 0 % (0-6); Hematocrit 39.5 % (33.0-51.0); Hemoglobin 12.7 g/dL (11.5-16.0); IMMATURE GRAN PERCENT AUTO 2 % (0-1); LYMPHOCYTES ABSOLUTE AUTO 0.64 K/mm3 (0.84-5.20); LYMPHOCYTES PERCENT AUTO 5 % (21-46); MONOCYTES ABSOLUTE AUTO 0.83 K/mm3 (0.16-1.47); MONOCYTES PERCENT AUTO 7 % (4-13); Mean Corpuscular HGB 27.7 pg (26.0-34.0); Mean Corpuscular HGB Conc 32.2 g/dL (31.5-36.5); Mean Corpuscular Volume 86 fL (80-100); Mean Platelet Volume 9.8 fL (9.1-12.4); NEUTROPHILS PERCENT AUTO 86 % (41-73); Platelet Count 302 K/mm3 (150-400); RDW Coefficient Variation 14.5 % (11.7-14.2); RDW Standard Deviation 45.4 fL (35.1-46.3); Red Blood Cell Count 4.58 M/mm3 (3.80-5.20); White Blood Cell Count 12.59 K/mm3 (4.00-11.30)
[2023-09-19 03:46] LABS: Albumin, Blood 2.9 g/dL (3.4-5.0); Albumin/Globulin Ratio 0.9 (0.8-1.8); Bilirubin, Total 0.2 mg/dL (0.1-1.0); Bun/Creatinine Ratio 46.6 (12.0-20.0); Calcium, Blood 8.7 mg/dL (8.5-10.1); Creatinine, Blood 0.6 mg/dL (0.40-1.00); Globulin, Blood 3.2 g/dL (2.2-4.0); Potassium, Blood 4.6 mmol/L (3.5-5.5); Total Protein, Blood 6.1 g/dL (6.4-8.2)
--- NOTE | 2023-09-19 05:11 | NUR ---
SHIFT SUMMARY NO ACUTE CHANGES SINCE PREVIOUS ASSUMPTION OF CARE NOTE. PATIENT SLEPT THROUGHOUT SHIFT, EASILY AROUSABLE TO VERBAL STIMULI. ABLE TO COMMUNICATE NEEDS EFFECTIVELY. REMAINS MEDICAL STATUS WITHOUT TELEMETRY. VSS. REMAINS ON 2L VIA NASAL CANNULA, SATS >90%. UP TO BEDSIDE COMMODE INDEPENDENTLY TO VOID. NO BM THIS SHIFT. CALL LIGHT IN REACH. WILL REPORT TO ONCOMING RN.
[2023-09-19 09:36] VITALS: BP 120/63
[2023-09-19] MEDS ORDERED: ACET325 PO (09:42)
[2023-09-19] MEDS ORDERED: CEFD300 PO (09:42)
[2023-09-19] MEDS ORDERED: ATOR40TA PO (09:42)
[2023-09-19] MEDS ORDERED: ASPI81CH PO (09:42)
[2023-09-19] MEDS ORDERED: METO25ER PO (09:43)
[2023-09-19] MEDS ORDERED: DELTASONE20 MG PO (09:44)
[2023-09-19] MEDS ORDERED: ENTRESTO 24 MG1 EAC2 PO (09:45)
[2023-09-19] MEDS ORDERED: JARDIANCE10 MG PO (10:29)
[2023-09-19 13:17] VITALS: BP 129/61
--- NOTE | 2023-09-19 15:33 | NUR ---
DISCHARGE SUMMARY Pt alert, oriented x4; anxious at times, cooperative with care. Pt resting in bed. up to side of bed and bsc ind. sba to bathroomm with walker. Pt denies pain, chest pain/pressure, nausea, dizziness and numb/tingling. Bp and heart wnl. Spo2 >90% on 2l o2 via nc (baseline), sob with exertion, wheeze noted t/o. Other VSS. Pt educated on discharge insturctions, follow up appointments and new medications. Prescription faxed to [facility] per pt requests, encouraged patient to have them picked up today and start antibiotics this evening. A ride via the [place], pt left via wheelchair at approx 1448.
== END 2023-09-19 14:45 | disposition home health service (06) | DRG 871 ==
LOC: ER 06:17 → PCU 08:06 → ICUE 09:57 → PCU 22:53
PROVIDERS: Family Medicine; Nurse Practitioner Acute Care; Student in an Organized Health Care Education/Training Program; ADMIT Internal Medicine
PROC: 3E03329 Introduction of Other Anti-infective into Peripheral Vein, Percutaneous Approach (ICD-10-PCS; principal; 2023-09-13)
PROC: 5A09357 Assistance with Respiratory Ventilation, Less than 24 Consecutive Hours, Continuous Positive Airway Pressure (ICD-10-PCS; 2023-09-13)
DX: A41.89 Other specified sepsis (principal); J10.01 Influenza due to other identified influenza virus with the same other identified influenza virus pneumonia; J96.21 Acute and chronic respiratory failure with hypoxia; J96.22 Acute and chronic respiratory failure with hypercapnia; E87.20 Acidosis, unspecified; J44.1 Chronic obstructive pulmonary disease with (acute) exacerbation; I50.22 Chronic systolic (congestive) heart failure; I24.89 Other forms of acute ischemic heart disease; J44.0 Chronic obstructive pulmonary disease with (acute) lower respiratory infection; N39.0 Urinary tract infection, site not specified; I48.91 Unspecified atrial fibrillation; D86.9 Sarcoidosis, unspecified; R59.0 Localized enlarged lymph nodes; I44.7 Left bundle-branch block, unspecified; F41.9 Anxiety disorder, unspecified; R65.20 Severe sepsis without septic shock; B96.20 Unspecified Escherichia coli [E. coli] as the cause of diseases classified elsewhere; Z99.81 Dependence on supplemental oxygen; Z79.01 Long term (current) use of anticoagulants; Z88.5 Allergy status to narcotic agent; Z88.2 Allergy status to sulfonamides; Z79.51 Long term (current) use of inhaled steroids; Z87.891 Personal history of nicotine dependence; Z11.52 Encounter for screening for COVID-19
CPT/HCPCS: 0202U; 36415; 51702; 71045; 71260; 80048; 80053; 81001; 82803; 83605; 83735; 83880; 84145; 84484; 85025; 85610; 85730; 87040; 87077; 87086; 87186; 93005; 93010; 94640; 94644; 94660; 94664; 94762; 96361; 96365; 97110; 97116; 97162; 97165; 97530; 97535; 99285-25; A9270; C1751; C8929; J0456; J0696; J1644; J2930; J7030; J7050; J7120; J7512; Q9957; Q9967

== ENCOUNTER 2024-04-20 06:07 | Day surgery (SDC) | payer OTHER ==
[~2024-04-20] VITALS: Ht 152.4 cm; Wt 99.9 kg
[~2024-04-20 06:07] MED LIST changes: +ASPI81CH PO; +ATOR40TA PO; +CEFD300 PO; +DELTASONE20 MG PO; +ENTRESTO 24 MG1 EAC2 PO; +JARDIANCE10 MG PO; +METO25ER PO
[2024-04-20] MEDS ORDERED: Lactated Ringer's 1,000 ML IV ONE ×2 (06:10→07:08)
[2024-04-20] MEDS ORDERED: levalbuterol HCL 1.25 MG/3 ML VIAL INH ONE (07:20)
[2024-04-20] MEDS ORDERED: Sodium Bicarb 8.4% 1 MEQ/ML 50 ML Vial ONE (07:42)
[2024-04-20] MEDS ORDERED: CeFAZolin Sodium 2,000 MG VIAL ONE (07:42)
[2024-04-20] MEDS ORDERED: Clindamycin 900mg in D5W 50ML 50 ML IV ONE (07:42)
[2024-04-20] MEDS ORDERED: NS 50 ML IV ONE (07:42)
[2024-04-20] MEDS ORDERED: Lidocaine HCl 2% 10 ML SDA ONE (07:47)
--- NOTE | 2024-04-20 07:53 | NUR ---
04/20/[address] [place] [address] 0720: DR CHAHAL AND DR WRIGHT NOTIFIED THAT PATIENT HAS ALLERGY TO CEFPODOXIME BUT DOESNT KNOW THE REACTION, PER DR WRIGHT PROCEED WITH ANCEF 2 G IV AND CLINDAMYCIN [address] CHAHAL AND DR WRIGHT NOTIFIED THAT PATIENT TOOK HER ELIQUIS THIS MORNING, PER DRS KEYON TO PROCEED. 0725: BREATHING TXMENT GIVEN PER ORDERS FROM DR CHAHAL FOR WHEEZING THROUGHOUT LUNGS.
--- NOTE | 2024-04-20 08:13 | NUR ---
04/20/24 0813 Leatha Narvaez PT HAS RAISED REDDENED AREA TO LEFT MIDDLE FINGER AT THE BASE OF THE NAIL BED
[2024-04-20 08:39] VITALS: BP 123/69
--- NOTE | 2024-04-20 08:40 | NUR ---
04/20/24 0840 ROMAINE MUÑOZ PT ON 3L CURRENTLY O2 98%. PT STATES ALWAYS ON 2.5L
== END 2024-04-20 09:14 | disposition home or self-care (01) ==
LOC: ORSCSDS 06:07
PROVIDERS: Orthopaedic Surgery
PROC: 0HTQXZZ Resection of Finger Nail, External Approach (ICD-10-PCS; principal; 2024-04-20 07:30)
DX: L08.9 Local infection of the skin and subcutaneous tissue, unspecified (principal); I10 Essential (primary) hypertension; I48.91 Unspecified atrial fibrillation; Z79.01 Long term (current) use of anticoagulants; Z95.0 Presence of cardiac pacemaker; J44.89 Other specified chronic obstructive pulmonary disease; Z99.81 Dependence on supplemental oxygen; E66.01 Morbid (severe) obesity due to excess calories; Z68.41 Body mass index [BMI] 40.0-44.9, adult; Z79.899 Other long term (current) drug therapy
CPT/HCPCS: 87070; 87075; 87077; 87102; 87106; 87186; 87205; J0690; J2001; J7120; J7614

== ENCOUNTER 2024-07-23 06:56 | Emergency (ER) | payer OTHER ==
[~2024-07-23] VITALS: Ht 152.4 cm; Wt 92.5 kg
[2024-07-23] MEDS ORDERED: Ipratropium/Albuterol SulF 2.5-0.5MG/3 ML Amp INH ONE (07:40)
[2024-07-23] MEDS ORDERED: MethylPREDNISolone Sod Succ 125 MG Vial IV ONE (07:40)
[2024-07-23] MEDS ORDERED: Ondansetron HCl 2 MG / ML 2ML Vial IV ONE (07:45)
[2024-07-23 08:25] LABS: BASOPHILS ABSOLUTE AUTO 0.07 K/mm3 (0.00-0.23); BASOPHILS PERCENT AUTO 1 % (0-2); EOSINOPHILS ABSOLUTE AUTO 0.31 K/mm3 (0.00-0.68); EOSINOPHILS PERCENT AUTO 3 % (0-6); Hematocrit 37.7 % (33.0-51.0); Hemoglobin 11.9 g/dL (11.5-16.0); IMMATURE GRAN ABSOLUTE AUTO 0.04 K/mm3 (0.00-0.10); IMMATURE GRAN PERCENT AUTO 0 % (0-1); LYMPHOCYTES ABSOLUTE AUTO 0.57 K/mm3 (0.84-5.20); LYMPHOCYTES PERCENT AUTO 6 % (21-46); MONOCYTES ABSOLUTE AUTO 0.57 K/mm3 (0.16-1.47); MONOCYTES PERCENT AUTO 6 % (4-13); Mean Corpuscular HGB Conc 31.6 g/dL (31.5-36.5); Mean Corpuscular Volume 92 fL (80-100); Mean Platelet Volume 9.9 fL (9.1-12.4); NEUTROPHILS ABSOLUTE AUTO 8.52 K/mm3 (1.96-9.15); NEUTROPHILS PERCENT AUTO 84 % (41-73); Platelet Count 270 K/mm3 (150-400); RDW Coefficient Variation 13.9 % (11.7-14.2); RDW Standard Deviation 46.9 fL (35.1-46.3); Red Blood Cell Count 4.11 M/mm3 (3.80-5.20); White Blood Cell Count 10.08 K/mm3 (4.00-11.30)
[2024-07-23] MEDS ORDERED: ADVIL PM PO (08:26)
[2024-07-23 08:55] LABS: Free Thyroxine 1.33 ng/dL (0.70-1.60)
[2024-07-23 08:57] LABS: Creatinine, Blood 0.6 mg/dL (0.40-1.00); Thyroid Stimulating Hormone 1.34 uIU/mL (0.360-4.800)
[2024-07-23 09:08] LABS: Influenza A, PCR NEGATIVE (NEGATIVE); Influenza B, PCR NEGATIVE (NEGATIVE); Resp Syncytial Virus, PCR NEGATIVE (NEGATIVE); SARS-Cov-2 (COVID-19) PCR, MMC NEGATIVE (NEGATIVE)
[2024-07-23 10:46] LABS: Source, Urine Clean Catch
[2024-07-23 10:52] LABS: Bilirubin, Urine Neg (Neg); Blood, Urine 1+ (Neg); Glucose Qualitative, Urine Neg (Neg); Ketones, Urine Neg (Neg); Leukocyte Esterase, Urine 3+ (Neg); Nitrite, Urine Neg (Neg); Protein, Urine 1+ (Neg); Specific Gravity, Urine 1.025 (1.003-1.022); Urobilinogen, Urine NORM (Normal)
[2024-07-23 11:00] LABS: Appearance, Urine Hazy (Clear); Color, Urine Yellow (P-Yellow)
[2024-07-23 11:01] LABS: Bacteria Many /hpf; White Blood Cells, Urine 25-50 /hpf (0-5)
[2024-07-23 11:02] LABS: Calcium Oxalate Crystals Few /hpf; Transitional Epithelial Cells Rare /hpf (0-Rare)
[2024-07-23 11:03] LABS: Hyaline Casts 0-2 /lpf (0-2); Squamous Epithelial Cells Mod /hpf (Few)
[2024-07-23] MEDS ORDERED: Nitrofurantoin/Nitrofuran Mac 100 MG Cap PO ONE (11:05)
[2024-07-23] MEDS ORDERED: PRED20 PO (11:08)
[2024-07-23] MEDS ORDERED: NITR100CA PO (11:09)
[2024-07-23 11:27] VITALS: BP 151/65
== END 2024-07-23 12:00 | disposition home or self-care (01) ==
LOC: ER 06:56
PROVIDERS: Emergency Medicine
DX: J44.1 Chronic obstructive pulmonary disease with (acute) exacerbation (principal); N39.0 Urinary tract infection, site not specified; I11.0 Hypertensive heart disease with heart failure; I50.20 Unspecified systolic (congestive) heart failure; I48.91 Unspecified atrial fibrillation; Z87.891 Personal history of nicotine dependence; Z79.51 Long term (current) use of inhaled steroids; Z79.52 Long term (current) use of systemic steroids; Z79.899 Other long term (current) drug therapy; Z88.5 Allergy status to narcotic agent; Z91.048 Other nonmedicinal substance allergy status; Z88.8 Allergy status to other drugs, medicaments and biological substances
CPT/HCPCS: 0241U; 71045; 80048; 81001; 83880; 84439; 84443; 84484; 85025; 85379; 93005; 93010; 94640; 94664; 96374; 96375; 99285-25; A9270; J2405; J2919

== ENCOUNTER 2024-08-09 19:03 | Inpatient (IN) | payer OTHER ==
[~2024-08-09] VITALS: Ht 152.4 cm; Wt 93.5 kg
[~2024-08-09 19:03] MED LIST changes: +ADVIL PM PO; +NITR100CA PO
[2024-08-09 19:26] LABS: BASOPHILS PERCENT AUTO 0 % (0-2); EOSINOPHILS ABSOLUTE AUTO 0.13 K/mm3 (0.00-0.68); EOSINOPHILS PERCENT AUTO 1 % (0-6); Hemoglobin 11.1 g/dL (11.5-16.0); IMMATURE GRAN ABSOLUTE AUTO 0.27 K/mm3 (0.00-0.10); IMMATURE GRAN PERCENT AUTO 1 % (0-1); LYMPHOCYTES ABSOLUTE AUTO 0.24 K/mm3 (0.84-5.20); LYMPHOCYTES PERCENT AUTO 1 % (21-46); MONOCYTES ABSOLUTE AUTO 0.73 K/mm3 (0.16-1.47); MONOCYTES PERCENT AUTO 3 % (4-13); Mean Corpuscular HGB 28.8 pg (26.0-34.0); Mean Corpuscular HGB Conc 30.8 g/dL (31.5-36.5); Mean Corpuscular Volume 94 fL (80-100); Mean Platelet Volume 9.9 fL (9.1-12.4); NEUTROPHILS ABSOLUTE AUTO 26.17 K/mm3 (1.96-9.15); NEUTROPHILS PERCENT AUTO 95 % (41-73); Platelet Count 283 K/mm3 (150-400); RDW Coefficient Variation 14.8 % (11.7-14.2); RDW Standard Deviation 50.2 fL (35.1-46.3); Red Blood Cell Count 3.85 M/mm3 (3.80-5.20); White Blood Cell Count 27.64 K/mm3 (4.00-11.30)
[2024-08-09] MEDS ORDERED: Ipratropium/Albuterol SulF 2.5-0.5MG/3 ML Amp INH ONE (19:30)
[2024-08-09] MEDS ORDERED: MethylPREDNISolone Sod Succ 125 MG Vial IV ONE (19:30)
[2024-08-09] MEDS ORDERED: NS 1,000 ML IV SCH ×2 (20:05→23:10)
[2024-08-09 20:06] LABS: Albumin, Blood 2.4 g/dL (3.4-5.0); Albumin/Globulin Ratio 0.8 (0.8-1.8); Bilirubin, Total 0.7 mg/dL (0.1-1.0); Bun/Creatinine Ratio 14.2 (12.0-20.0); Calcium, Blood 8.1 mg/dL (8.5-10.1); Creatinine, Blood 0.63 mg/dL (0.40-1.00); Globulin, Blood 3.2 g/dL (2.2-4.0); Potassium, Blood 4.2 mmol/L (3.5-5.5); Total Protein, Blood 5.6 g/dL (6.4-8.2)
[2024-08-09] MEDS ORDERED: LevoFLOXacin 750 MG/D5W 150ML 150 ML IV ONE (20:20)
[2024-08-09 21:19] LABS: Albumin, Blood 2.5 g/dL (3.4-5.0); Albumin/Globulin Ratio 0.8 (0.8-1.8); Bilirubin, Direct 0.3 mg/dL (0.0-0.3); Bilirubin, Indirect 0.5 mg/dL (0.1-0.7); Bilirubin, Total 0.8 mg/dL (0.1-1.0); Globulin, Blood 3.3 g/dL (2.2-4.0); Magnesium, Blood 1.2 mg/dL (1.6-2.4); Phosphorus, Blood 2.1 mg/dL (2.5-4.9); Total Protein, Blood 5.8 g/dL (6.4-8.2)
[2024-08-09 21:39] LABS: CORONAVIRUS COVID-19 AG Negative (NEGATIVE); INFLUENZA A AG Negative (NEGATIVE); INFLUENZA B AG Negative (NEGATIVE)
[2024-08-09 23:04] LABS: Source, Urine Clean Catch
[2024-08-09] MEDS ORDERED: Ondansetron HCl 2 MG / ML 2ML Vial IV PRN (23:10)
[2024-08-09] MEDS ORDERED: Ipratropium/Albuterol SulF 2.5-0.5MG/3 ML Amp INH PRN (23:10)
[2024-08-09] MEDS ORDERED: FLU VACC TS2024-25(6MOS UP)/PF 45 MCG/0.5 ML SYRINGE IM ONE (23:10)
[2024-08-09] MEDS ORDERED: Sodium Phosphate 20 MM in Dextrose 5% 500 ML IV STA (23:18)
[2024-08-09] MEDS ORDERED: Magnesium Sulf 2 GM/Water 50ML 50 ML IV ONE (23:20)
[2024-08-09 23:24] LABS: Bilirubin, Urine Neg (Neg); Blood, Urine 1+ (Neg); Glucose Qualitative, Urine Neg (Neg); Ketones, Urine Neg (Neg); Leukocyte Esterase, Urine 3+ (Neg); Nitrite, Urine Neg (Neg); Protein, Urine 1+ (Neg); Urobilinogen, Urine NORM (Normal)
[2024-08-09] MEDS ORDERED: Enoxaparin 40 MG/0.4 ML SYR SC SCH (23:30)
[2024-08-09 23:50] VITALS: BP 127/61
[2024-08-09 23:52] LABS: Appearance, Urine Cloudy (Clear); Color, Urine Yellow (P-Yellow)
[2024-08-09 23:53] LABS: Amorphous Mod (0-Heavy); Bacteria Many /hpf; Squamous Epithelial Cells Many /hpf (Few); White Blood Cells, Urine 25-50 /hpf (0-5)
--- NOTE | 2024-08-10 02:05 | NUR ---
PATIENT IS A NEW ADMIT FROM THE ED. ONE ASSIST TRANSFER FROM [facility] TO BED. ON 3L O2 NC AND SOB W/EXERTION. 2.5 L BASELINE. REPORTED PACEMAKER. REPORTS SHE WAS HERE X 2 WEEKS AGO. DENIES CHEST PAIN AND N/V. ORIENTED TO ROOM AND CALL LIGHT SYSTEM. SLEEPING AFTER ASSESSMENT. WCTM.
[2024-08-10] MEDS ORDERED: Mometasone/Formoterol MDI 200/5 mcg 13 GM INH SCH (03:50)
--- NOTE | 2024-08-10 04:14 | NUR ---
SHIFT SUMMARY PATIENT HAD NO ACUTE CHANGES. AXOX 4 AND SBA ASSIST TO BSC. ON 3L O2 NC AND SOB W/EXERTION. TELE MONITOR V-PACED 70. DENIES CHEST PAIN AND N/V. VSS/AFEBRILE. PIV INTACT. IV MAG SULFATE AND IV NA PHOS INFUSED. SLEPT MOST OF THE SHIFT. COOPERATIVE WITH CARE. CALL LIGHT IN REACH. BED IN LOWEST POSITION. WILL CONTINUE TO MONITOR UNTIL DAY SHIFT NURSE ASSUMES CARE.
[2024-08-10 05:52] VITALS: BP 110/45
[2024-08-10 06:04] LABS: Hematocrit 31.6 % (33.0-51.0); Hemoglobin 10.3 g/dL (11.5-16.0); Mean Corpuscular HGB 28.5 pg (26.0-34.0); Mean Corpuscular HGB Conc 32.6 g/dL (31.5-36.5); Platelet Count 319 K/mm3 (150-400); RDW Coefficient Variation 14.5 % (11.7-14.2); Red Blood Cell Count 3.61 M/mm3 (3.80-5.20); White Blood Cell Count 23.92 K/mm3 (4.00-11.30)
[2024-08-10 06:08] LABS: Mean Corpuscular Volume 88 fL (80-100)
[2024-08-10 06:43] LABS: Albumin, Blood 2.3 g/dL (3.4-5.0); Albumin/Globulin Ratio 0.7 (0.8-1.8); Bilirubin, Total 0.6 mg/dL (0.1-1.0); Bun/Creatinine Ratio 14.4 (12.0-20.0); Calcium, Blood 8.6 mg/dL (8.5-10.1); Creatinine, Blood 0.9 mg/dL (0.40-1.00); Globulin, Blood 3.2 g/dL (2.2-4.0); Potassium, Blood 4.9 mmol/L (3.5-5.5); Total Protein, Blood 5.5 g/dL (6.4-8.2)
[2024-08-10] MEDS ORDERED: Tiotropium Bromide 2.5 MCG/ACT MIST INHAL (10 ACT/4 GM) INH SCH (06:45)
[2024-08-10] MEDS ORDERED: Polyethylene Glycol 3350 17 gm PO PRN (07:20)
[2024-08-10] MEDS ORDERED: Acetaminophen 500 MG Tab PO PRN (07:25)
[2024-08-10 07:33] VITALS: BP 104/44
[2024-08-10 07:52] LABS: BASOPHILS PERCENT MAN 0 % (0-2); EOSINOPHILS PERCENT MAN 0 % (0-6); LYMPHOCYTES ABSOLUTE MAN 0.47 K/mm3 (0.84-5.20); LYMPHOCYTES PERCENT MAN 2 % (21-46); MONOCYTES PERCENT MAN 0 % (4-13); NEUTROPHILS ABSOLUTE MAN 23.44 K/mm3 (1.96-9.15); SEG NEUTROPHILS PERCENT MAN 98 % (41-73); TOTAL CELLS COUNTED 100
[2024-08-10] MEDS ORDERED: Apixaban 5 MG Tab PO SCH (09:00)
[2024-08-10] MEDS ORDERED: Furosemide 40 MG Tab PO SCH (09:00)
[2024-08-10] MEDS ORDERED: Azithromycin 250 MG Tab PO SCH (09:00)
[2024-08-10] MEDS ORDERED: Potassium Chloride 20 MEQ TabCR PO SCH (09:00)
[2024-08-10] MEDS ORDERED: Cholecalciferol 1000 Unit Tablet (=25MCG) PO SCH (09:00)
[2024-08-10] MEDS ORDERED: Sertraline HCl 100 MG Tab PO SCH (09:00)
[2024-08-10] MEDS ORDERED: MethylPREDNISolone Sod Succ 125 MG Vial IV SCH (09:00)
[2024-08-10] MEDS ORDERED: Acetaminophen325 M1 PO (10:31)
[2024-08-10] MEDS ORDERED: Valerian Root500 MG PO (10:32)
[2024-08-10 15:40] VITALS: BP 106/48
--- NOTE | 2024-08-10 17:05 | NUR ---
PT IS A7OX4, VSS AND ON 3LNC. PT WAS SEEN BY THERAPY TODAY AND PROGRESSED TO 1A/GB/W. PT WAS ADVANCED TO A REGULAR DIET. NO OTHER CHANGES HAVE BEEN MADE. PT HAS NO QUESTIONS OR CONCERNS AT THIS TIME.
[2024-08-10 20:46] VITALS: BP 104/38
[2024-08-10] MEDS ORDERED: Docusate Sodium/Senna 1 Tab PO SCH (21:00)
[2024-08-11 03:20] VITALS: BP 123/55
--- NOTE | 2024-08-11 05:20 | NUR ---
SHIFT SUMMARY 79 YR F ADMITTED ON 08/09/24. FULL CODE. NO ACUTE CHANGES THIS SHIFT, PT HAS HAD NO C/O PAIN OR DISCOMFORT. SHE IS USING THE BSC INDEPENDANTLY. 3 L O2 W/ SATS MAINTAINING IN THE 90'S. PT IS PLEASANT AND COOPERATIVWE WITH CARE. MAY BE DISCHARGED LYSSA ON ABX TODAY. BED IN LOW POSITION AND CALL LIGHT IN REACH.
[2024-08-11 05:23] LABS: Hematocrit 29.4 % (33.0-51.0); Hemoglobin 9.7 g/dL (11.5-16.0); Mean Corpuscular HGB 28.8 pg (26.0-34.0); Mean Corpuscular Volume 87 fL (80-100); Mean Platelet Volume 10.1 fL (9.1-12.4); Platelet Count 305 K/mm3 (150-400); RDW Coefficient Variation 14.7 % (11.7-14.2); RDW Standard Deviation 47.1 fL (35.1-46.3); Red Blood Cell Count 3.37 M/mm3 (3.80-5.20); White Blood Cell Count 14.54 K/mm3 (4.00-11.30)
[2024-08-11 05:52] LABS: Albumin, Blood 2.4 g/dL (3.4-5.0); Anion Gap 9 mmol/L (3-11); Blood Urea Nitrogen 18 mg/dL (8-24); Bun/Creatinine Ratio 24.7 (12.0-20.0); CO2, Blood 27 mmol/L (21-32); Calcium, Blood 8.8 mg/dL (8.5-10.1); Chloride, Blood 106 mmol/L (98-108); Creatinine, Blood 0.73 mg/dL (0.40-1.00); Glomerular Filtration Rate 84 (60-); Glucose, Blood 159 mg/dL (70-99); Magnesium, Blood 2.1 mg/dL (1.6-2.4); Phosphorus, Blood 3.5 mg/dL (2.5-4.9); Potassium, Blood 4.6 mmol/L (3.5-5.5); Sodium, Blood 137 mmol/L (136-145)
[2024-08-11] MEDS ORDERED: CefTRIAXone Sodium 1,000 MG in NS 100 ML IV SCH (07:28)
[2024-08-11 08:32] VITALS: BP 134/67
--- NOTE | 2024-08-11 15:49 | NUR ---
SHIFT SUMMARY PATIENT ABLE TO USE BSC INDEPENDENTLY. ON 3 LITERS OXYGEN. VSS. A/OX4. C/O HEADACHE, GIVEN TYLENOL WITH GOOD RELIEF. IV SITE ROTATED DUE TO PAIN, TOLERATED WELL. ABLE TO MAKE NEEDS KNOWN. CALL LIGHT IN REACH, CARES ONGOING.
[2024-08-11 17:23] VITALS: BP 135/71
[2024-08-11 19:11] VITALS: BP 130/73
[2024-08-11] MEDS ORDERED: LevoFLOXacin 750 MG/D5W 150ML 150 ML IV SCH (21:00)
--- NOTE | 2024-08-12 04:41 | NUR ---
SHIFT SUMMARY 79 YR F ADMITTED ON 08/09/24. FULL CODE. NO ACUTE CHANGES THIS SHIFT. PT HAS HAD NO C/O PAIN OR DISCOMFORT THIS SHIFT. INDEPENDANT IN THE ROOM. SHE HAS SLEPT FOR MOST OF THE NIGHT. NOTHING NEW TO REPORT. BED IN LOW POSITION AND CALL LIGHT IN REACH.
[2024-08-12 04:54] VITALS: BP 133/60
[2024-08-12 07:06] VITALS: BP 124/62
[2024-08-12] MEDS ORDERED: PredniSONE 20 MG Tab PO SCH (09:00)
[2024-08-12 15:50] VITALS: BP 143/66
--- NOTE | 2024-08-12 19:47 | NUR ---
SHIFT SUMMARY PATIENT CONTINUES WITH 3 LITERS OXYGEN. C/O BACK PAIN, GIVEN APAP WITH GOOD RELIEF. TOLERATING ABX WELL. ON DROPLET ISOLATION FOR SPUTUM CX RESULTS. ABLE TO MAKE NEEDS KNOWN. CALL LIGHT IN REACH, INDEPENDENT IN ROOM. CARES ONGOING.
[2024-08-12 22:57] VITALS: BP 135/58
--- NOTE | 2024-08-13 03:46 | NUR ---
RESIDENT CARE COORDINATOR SUMMARY VSS. ALERT AND ORIENTED X 4. UP AD SANJAY TO COMMODE. COOPERATIVE WITH CARE. O2 PER NC AT 2L/MIN. MED TELE - V PACED AT 70. DROPLET PRECAUTIONS MAINTAINED. HAS BEEN RESTING QUIETLY WITH FEW INTERRUPTIONS PAIN MED FOR HEADACHE EFFECTIVE, DROPLET PRECAUTIONS CONTINUE. ABLE TO REPOSITION SELF IN BED WITHOUT ASSIST. CALL LIGHT IN REACH, RAILS UP X 2 AND BED IN LOW POSITION FOR SAFETY. WILL CONTINUE TO MONITOR
[2024-08-13 05:37] LABS: Hematocrit 31.1 % (33.0-51.0); Hemoglobin 9.9 g/dL (11.5-16.0); Mean Corpuscular HGB 28.6 pg (26.0-34.0); Mean Corpuscular HGB Conc 31.8 g/dL (31.5-36.5); Mean Corpuscular Volume 90 fL (80-100); Platelet Count 318 K/mm3 (150-400); RDW Coefficient Variation 14.7 % (11.7-14.2); RDW Standard Deviation 48.4 fL (35.1-46.3); Red Blood Cell Count 3.46 M/mm3 (3.80-5.20); White Blood Cell Count 7.86 K/mm3 (4.00-11.30)
[2024-08-13 06:12] VITALS: BP 143/69
[2024-08-13 07:01] LABS: Bun/Creatinine Ratio 34.1 (12.0-20.0); Calcium, Blood 8.4 mg/dL (8.5-10.1); Creatinine, Blood 0.59 mg/dL (0.40-1.00); Potassium, Blood 4.2 mmol/L (3.5-5.5)
[2024-08-13 07:26] VITALS: BP 130/62
[2024-08-13] MEDS ORDERED: DOXY100 PO (12:52)
[2024-08-13] MEDS ORDERED: Prednisone10 MG PO (12:55)
--- NOTE | 2024-08-13 14:39 | NUR ---
SHIFT SUMMARY/DISCHARGE. PATIENT IS A&OX4. PATIENT IS INDEPENDENT IN ROOM. PATIENT ON 2.5 LPM VIA NASAL CANNULA-PATIENT IS AT BASELINE OXYGEN. PATIENT IS PLEASANT AND COOPERATIVE WITH CARE. NO C/O PAIN OR CHEST PAIN. BED IS LOCKED IN THE LOWEST POSITION WITH CALL LIGHT IN REACH. [facility] FROM [facility] ARRIVED TO PATIENTS ROOM AT 1435. PATIENTS OXYGEN TRANSFERED TO HER PORTABLE CONCENTRATOR AT 2 LPM HER CONCENTRATOR DOES NOT DO HALF LPM. PATIENT ABLE TO SELF AMBULATE TO WHEELCHAIR AND WAS TRANSPORTED OUT OF THE HOSPITAL BY [facility].
== END 2024-08-13 14:39 | disposition home health service (06) | DRG 871 ==
LOC: ER 19:03 → MEDS 22:12 → ERHOLD 22:12 → MEDS 23:44 → ENPENDDIS 08-10 11:31 → MEDS 08-10 22:56
PROVIDERS: Internal Medicine; Student in an Organized Health Care Education/Training Program; ADMIT Internal Medicine
DX: A41.9 Sepsis, unspecified organism (principal); J18.9 Pneumonia, unspecified organism; J96.21 Acute and chronic respiratory failure with hypoxia; J44.1 Chronic obstructive pulmonary disease with (acute) exacerbation; N39.0 Urinary tract infection, site not specified; J44.0 Chronic obstructive pulmonary disease with (acute) lower respiratory infection; I50.22 Chronic systolic (congestive) heart failure; I48.20 Chronic atrial fibrillation, unspecified; E87.1 Hypo-osmolality and hyponatremia; R54 Age-related physical debility; I11.0 Hypertensive heart disease with heart failure; E83.51 Hypocalcemia; E88.09 Other disorders of plasma-protein metabolism, not elsewhere classified; F41.9 Anxiety disorder, unspecified; D86.9 Sarcoidosis, unspecified; Z88.5 Allergy status to narcotic agent; Z91.048 Other nonmedicinal substance allergy status; Z88.8 Allergy status to other drugs, medicaments and biological substances; Z79.01 Long term (current) use of anticoagulants; Z79.811 Long term (current) use of aromatase inhibitors; Z79.899 Other long term (current) drug therapy; Z90.710 Acquired absence of both cervix and uterus; Z90.49 Acquired absence of other specified parts of digestive tract; Z98.890 Other specified postprocedural states; Z87.891 Personal history of nicotine dependence; Z99.81 Dependence on supplemental oxygen
CPT/HCPCS: 36415; 71045; 80048; 80053; 80069; 80076; 81001; 83605; 83735; 83880; 84100; 84145; 84484; 85025; 85027; 87040; 87070; 87077; 87086; 87186; 87205; 87428-QW; 93005; 93010; 94640; 94664; 94760; 96361; 96365; 96375; 97161; 97530; 99285-25; A9270; J0696; J1650; J1956; J2919; J3475; J7030; J7060; J7512

== ENCOUNTER 2024-08-28 18:54 | Emergency (ER) | payer OTHER ==
[~2024-08-28] VITALS: Ht 152.4 cm; Wt 94.8 kg
[~2024-08-28 18:54] MED LIST changes: +Acetaminophen325 M1 PO; +DOXY100 PO
[2024-08-28 18:59] VITALS: BP 128/59
[2024-08-28 19:44] LABS: BASOPHILS ABSOLUTE AUTO 0.05 K/mm3 (0.00-0.23); BASOPHILS PERCENT AUTO 0 % (0-2); EOSINOPHILS PERCENT AUTO 2 % (0-6); Hematocrit 33.2 % (33.0-51.0); Hemoglobin 10.7 g/dL (11.5-16.0); IMMATURE GRAN ABSOLUTE AUTO 0.11 K/mm3 (0.00-0.10); IMMATURE GRAN PERCENT AUTO 1 % (0-1); LYMPHOCYTES ABSOLUTE AUTO 1.04 K/mm3 (0.84-5.20); LYMPHOCYTES PERCENT AUTO 8 % (21-46); MONOCYTES ABSOLUTE AUTO 0.83 K/mm3 (0.16-1.47); MONOCYTES PERCENT AUTO 6 % (4-13); Mean Corpuscular HGB 29.6 pg (26.0-34.0); Mean Corpuscular HGB Conc 32.2 g/dL (31.5-36.5); Mean Corpuscular Volume 92 fL (80-100); Mean Platelet Volume 9.5 fL (9.1-12.4); NEUTROPHILS ABSOLUTE AUTO 11.28 K/mm3 (1.96-9.15); NEUTROPHILS PERCENT AUTO 84 % (41-73); Platelet Count 251 K/mm3 (150-400); RDW Coefficient Variation 16.6 % (11.7-14.2); RDW Standard Deviation 55.7 fL (35.1-46.3); Red Blood Cell Count 3.62 M/mm3 (3.80-5.20); White Blood Cell Count 13.51 K/mm3 (4.00-11.30)
[2024-08-28 20:00] LABS: Albumin, Blood 2.9 g/dL (3.4-5.0); Albumin/Globulin Ratio 0.9 (0.8-1.8); Bilirubin, Total 0.5 mg/dL (0.1-1.0); Bun/Creatinine Ratio 23.5 (12.0-20.0); Calcium, Blood 8.6 mg/dL (8.5-10.1); Creatinine, Blood 0.64 mg/dL (0.40-1.00); Globulin, Blood 3.2 g/dL (2.2-4.0); Potassium, Blood 3.6 mmol/L (3.5-5.5); Total Protein, Blood 6.1 g/dL (6.4-8.2)
== END 2024-08-28 23:15 | disposition home or self-care (01) ==
LOC: ER 18:54
PROVIDERS: Physician Assistant
DX: R07.9 Chest pain, unspecified (principal); I11.0 Hypertensive heart disease with heart failure; I50.20 Unspecified systolic (congestive) heart failure; I48.91 Unspecified atrial fibrillation; J44.9 Chronic obstructive pulmonary disease, unspecified; Z88.5 Allergy status to narcotic agent; Z88.1 Allergy status to other antibiotic agents; Z88.8 Allergy status to other drugs, medicaments and biological substances; Z91.048 Other nonmedicinal substance allergy status; Z79.01 Long term (current) use of anticoagulants; Z79.899 Other long term (current) drug therapy; Z87.891 Personal history of nicotine dependence; Z99.81 Dependence on supplemental oxygen
CPT/HCPCS: 71046; 80053; 84484; 85025; 93005; 93010; 99285-25